=== PATIENT | male | born 1950 | race Caucasian/White ===

== ENCOUNTER 2024-02-21 13:37 | Inpatient (IN) ==
--- NOTE | 2024-02-21 13:43 | ED Triage Note ---
Date of Service February 21, 2024 Provider in Triage Author: Charanjit Riojas History of Present Illness This patient was briefly evaluated while in triage. An abbreviated physical exam was performed. This patient is a 73-year-old Male who presents to the ED for evaluation sent by Amy for left arm bursitis/cellulitis started Tuesday on Keflex and Bactrim saw Dr. Fam x 2 since Tuesday and symptoms got worse denies fever/chills Physical Exam GENERAL: NAD CARDIOVASCULAR: RRR RESPIRATORY: CTA EXT: left arm erythema, redness, warmth, decreased ROM Initial orders for labs and / or imaging were placed and patient was placed in the waiting area until a bed is available. Please see further documentation for the full ED course.
[2024-02-21 14:37] LABS: Basophils # (auto) 0.07 K/uL (0.00-0.20); Basophils % (auto) 0.5 %; Eosinophils # (auto) 0.08 K/uL (0.00-0.50); Eosinophils % (auto) 0.5 %; Hematocrit (blood only) 38.7 % (42.0-52.0); Hemoglobin 12.7 g/dl (14.0-18.0); Immature Granulocytes # (auto) 0.15 K/uL (0.01-0.20); Lymphocytes # (auto) 1.53 K/uL (1.20-3.40); Lymphocytes % (auto) 10.3 %; Mean Corpuscular Hemoglobin 30.5 pg (25.0-34.0); Mean Corpuscular Hgb Conc 32.8 g/dL (32.0-36.0); Mean Corpuscular Volume 92.8 fL (80.0-100.0); Mean Platelet Volume 11.2 fL (9.4-12.4); Monocytes # (auto) 1.27 K/uL (0.11-0.59); Monocytes % (auto) 8.5 %; Neutrophils # (auto) 11.82 K/uL (1.40-6.50); Neutrophils % (auto) 79.2 %; Platelet Count 238 K/uL (130-400); RDW Coefficient of Variation 13.9 % (11.5-14.5); RDW Standard Deviation 47.5 fL (36.4-46.3); Red Blood Count 4.17 M/uL (4.70-6.10); White Blood Count 14.92 K/ul (4.8-10.8)
[2024-02-21 14:46] LABS: Albumin Level 4.1 gm/dl (3.4-5.0); BUN Creatinine Ratio 17.2 (10-20); Bilirubin Direct 0.2 mg/dl (0-0.2); Bilirubin,Total 0.7 mg/dl (0.2-1.0); Creatinine Clr Calc Pharmacy 48.7 ml/min; Est GFR (African American) 67.7 ml/min; Est GFR (Non-African American) 58.5 ml/min; Magnesium 1.8 mg/dl (1.7-2.4); Potassium 3.9 mmol/L (3.5-5.1); Total Protein 7.2 gm/dl (6.0-8.3)
--- NOTE | 2024-02-21 14:57 | XRay Report ---
LEFT ELBOW 3 VIEWS CLINICAL HISTORY: Cellulitis/bursitis. FINDINGS: 3 views of the left elbow are obtained. No prior studies are available for comparison at th e time of dictation. The skeletal structures are osteopenic. No acute/displaced fracture is identifie d. There is no dislocation. An enthesophyte is seen at the triceps insertion, and there are enthesoph ytes along the humeral epicondyles. There is a small joint effusion. There is marked soft tissue fabien a surrounding the elbow, greatest dorsally. No soft tissue gas or radiodense foreign body is seen. IMPRESSION: 1. No acute bony abnormality is identified. 2. Marked soft tissue edema is seen around the elbow, greatest dorsally. This likely represents cellu litis/bursitis as clinically suspected. 3. There is a small nonspecific joint effusion. Correlate clinically. Electronically signed by: Harvinder Rocha M.D. 02/21/2024 2:56 PM
[2024-02-21] MEDS ORDERED: VANCOMYCIN CONSULT ACTIVE PRN (16:18)
[2024-02-21] MEDS: VANCOMYCIN HCL 1,500 MG in SODIUM CHLORIDE 0.9% 500 ML IV ONE (16:58)
[2024-02-21] MEDS ORDERED: ALUMINUM/MAGNESIUM SUSP 30 ML UDC PO PRN (17:02)
--- NOTE | 2024-02-21 17:04 | History & Physical Report ---
Date of Service February 21, 2024 Assessment & Plan (1) Bursitis of left elbow: Plan Left elbow cellulitis Left elbow bursitis Failure of outpatient antibiotic therapy with Keflex and Bactrim. No sepsis poa. lactate and procal nl. pt afebrile. left elbow xr reviewed. Patient started on vancomycin at ed, continue vancomycin. Follow-up admitting blood culture, send MRSA screen. Orthopedic consult. Other chronic medical conditions: HLD, HTNcontinue with/resume home meds as and when able. Heparin subcu for DVT prophylaxis Full code History of Present Illness Chief Complaint: expanding left elbow cellulitis Primary Care Provider: Antoni Fam MD 73-year-old male with PMH of HLD, HTN presented to the ED for evaluation of expanding left elbow cellulitis. Patient was evaluated by his PCP yesterday for left elbow cellulitis and was put on antibiotic Keflex and Bactrim. Patient took both antibiotics about 1 days worth before presentation to the ED. Patient was directed to go to the hospital if elevated temperature or expanding erythema. Patient came into the ED for evaluation of cellulitis as the erythema is expanding than yesterday. Patient denies fever/sore throat/nausea/vomiting/chest pain/cough/palpitations/abdominal pain/acute changes in bowel or bladder or appetite habits. Patient denies any smoking/alcohol/recreational drug use. Full code as per my discussion with the patient. [Ena and Juan Jose are his POA] Medications were reviewed with the patient in detail. Plan of care were discussed with the patient and his children Ena and Juan Jose at bedside in detail. They voiced understanding and were agreeable to plan of care. Allergies Allergy/AdvReac Type Severity Reaction Status Date / Time No Known Allergies Allergy Unknown Verified 02/21/24 16:25 Home Medications Medication Instructions Recorded Confirmed Type atorvastatin 10 mg tablet 10 mg PO QAM 09/21/19 02/21/24 History levothyroxine 75 mcg tablet 75 mcg PO QAM 09/21/19 02/21/24 History losartan 25 mg tablet 25 mg PO QPM 09/21/19 02/21/24 History omega-3 fatty acids-fish oil 360 1 cap PO QAM 09/21/19 02/21/24 History mg-1,200 mg capsule (Fish Oil) amlodipine 2.5 mg tablet 2.5 mg PO QAM 02/21/24 02/21/24 History aspirin 81 mg tablet,delayed 81 mg PO QAM 02/21/24 02/21/24 History release cephalexin 500 mg capsule 500 mg PO TID 02/21/24 02/21/24 History sulfamethoxazole 800 1 tab PO BID 02/21/24 02/21/24 History mg-trimethoprim 160 mg tablet Past Med/Surg History Problem List (Updated 02/21/24 @ 17:02 by Vishal Lincoln MD) Bursitis of left elbow Right knee DJD Left knee DJD Medical History Achilles tendon tear Surgical History No pertinent past surgical history Family History Other No pertinent family history Social History Smoking Status: Never smoker Preferred Language: Khmer Current Living Situation: Family Feels Safe at Home: Yes Review of Systems Review of Systems: Negative otherwise mentioned in HPI. Physical Exam Physical Exam: GENERAL: Alert and oriented x3. NAD, on RA. HEENT: No pallor, no icterus. Pupils equal, round and reactive to light. Oral mucosa moist. NECK: No JVD, no neck masses. HEART: S1 and S2 heard. Regular rate and rhythm. No murmur, no gallop. RESPIRATORY SYSTEM: Normal AP diameter. No accessory muscle use. No wheezing, no crackles. ABDOMEN: Soft, bowel sounds present, nontender, no distention. CENTRAL NERVOUS SYSTEM: No facial droop. Speech is clear. Obeys simple commands. Moves extremities. EXTREMITIES: No edema, no erythema seen. Left know bursitis/cellulitis noted, erythema/warmth extending from mid arm to about wrist. ROM ok, non painful. non tender on exam. Results & Data Results & Data Vital Signs (Past 12 Hours) Vital Signs Temp Pulse Resp BP Pulse Ox O2 Del Method 02/21/24 15:56 70 02/21/24 13:41 36.7 C 86 18 149/86 H 96 Room Air
--- NOTE | 2024-02-21 21:07 | Emergency Department Note ---
History of Present Illness General Chief complaint: Infection Stated complaint: ARM INFECTION, REF BY DOC Time Seen by Provider: 02/21/24 15:46 History of Present Illness Provider complaint: Left arm infection Maximum Pain Intensity: 7 73-year-old male presents emergency department for left arm infection. Patient's symptoms began 4 days ago. He reports there is increasing redness and swelling in his left elbow area. No fevers. Patient reports he went to see his primary care doctor at [facility] who started him on Keflex and Bactrim luis a line around it yesterday. The patient states that the redness and swelling spread past line and he was instructed to come to the emergency department. Home Medications Medication Instructions Recorded Confirmed Type atorvastatin 10 mg tablet 10 mg PO QAM 09/21/19 02/21/24 History levothyroxine 75 mcg tablet 75 mcg PO QAM 09/21/19 02/21/24 History losartan 25 mg tablet 25 mg PO QPM 09/21/19 02/21/24 History omega-3 fatty acids-fish oil 360 1 cap PO QAM 09/21/19 02/21/24 History mg-1,200 mg capsule (Fish Oil) amlodipine 2.5 mg tablet 2.5 mg PO QAM 02/21/24 02/21/24 History aspirin 81 mg tablet,delayed 81 mg PO QAM 02/21/24 02/21/24 History release cephalexin 500 mg capsule 500 mg PO TID 02/21/24 02/21/24 History sulfamethoxazole 800 1 tab PO BID 02/21/24 02/21/24 History mg-trimethoprim 160 mg tablet Allergies Allergy/AdvReac Type Severity Reaction Status Date / Time No Known Allergies Allergy Unknown Verified 02/21/24 16:25 Past Med/Surg History Problem List (Updated 02/21/24 @ 21:10 by Naeem Wheatley MD) Cellulitis (Acute) Bursitis of left elbow Right knee DJD Left knee DJD Medical History Achilles tendon tear Surgical History No pertinent past surgical history Family History Other No pertinent family history Social History Smoking Status: Never smoker Preferred Language: Chinese Current Living Situation: Family Feels Safe at Home: Yes Physical Exam Vital Signs Vital Signs - 24 hr 02/21/24 13:41 02/21/24 13:43 02/21/24 15:51 Temperature 36.7 C Temperature Source Temporal Artery Scan Pulse Rate 86 71 Pulse Rate from SpO2 Sensor 70 Respiratory Rate 18 16 Respiratory Effort / Characteristics Non-Labored Respiratory Depth Normal Blood Pressure 149/86 H Blood Pressure Mean 107 Pulse Oximetry 96 98 97 Oxygen Delivery Method Room Air Room Air Sepsis Recent Fever Within 48 Hours No Sepsis New/Unexplained Change in Mental Status No Sepsis Action Taken by Nursing No Action Required 02/21/24 15:56 02/21/24 16:15 Temperature Temperature Source Pulse Rate 70 80 Pulse Rate from SpO2 Sensor 74 Respiratory Rate 14 Respiratory Effort / Characteristics Respiratory Depth Blood Pressure Blood Pressure Mean Pulse Oximetry 93 Oxygen Delivery Method Sepsis Recent Fever Within 48 Hours Sepsis New/Unexplained Change in Mental Status Sepsis Action Taken by Nursing Physical Exam CV: Normal rate, regular rhythm, normal heart sounds and intact distal pulses. There is no peripheral edema. Palpable radial pulses bue. PULM/CHEST: Effort normal and breath sounds normal. No respiratory distress. No stridor. He has no wheezes. He has no rales. MUSC/SKEL: Left upper extremity: Palpable radial ulnar pulse. Motor and sensation intact in the median radial ulnar nerve distribution. Compartments of the upper extremity are soft. There is erythema and warmth as well as swelling in the right elbow and medial forearm extending up into his biceps area. Full range of motion of the left elbow. Consistent with appearance of cellulitis. Right upper extremity: Within normal limit Course Course 1546: The patient was evaluated in room C8. A complete history and physical exam was performed Administered Medications Discontinued Medications Vancomycin HCl 1,500 mg/ (Sodium Chloride) 530 mls @ 200 mls/hr IV NOW ONE Stop: 02/21/24 18:56 Last Infusion: 02/21/24 19:37 Dose: Infused Documented By: Admin: 02/21/24 16:58 Dose: 200 mls/hr Documented By: MAXIMILIANO Medical Decision Making Laboratory Data Attestation: I reviewed the patient's lab results. 02/21/24 11:05 02/21/24 11:05 Lab Results 02/21/24 02/21/2424 Range/Units 11:05 14:05 16:14 WBC 14.92 H (4.8-10.8) K/ul RBC 4.17 L (4.70-6.10) M/uL Hgb 12.7 L (14.0-18.0) g/dl Hct 38.7 L (42.0-52.0) % MCV 92.8 (80.0-100.0) fL MCH 30.5 (25.0-34.0) pg MCHC 32.8 (32.0-36.0) g/dL RDW Std Deviation 47.5 H (36.4-46.3) fL RDW Coeff of Ez 13.9 (11.5-14.5) % Plt Count 238 (130-400) K/uL MPV 11.2 (9.4-12.4) fL Immature Gran % (Auto) 1.0 % Neut % (Auto) 79.2 % Lymph % (Auto) 10.3 % Wharton % (Auto) 8.5 % Eos % (Auto) 0.5 % Baso % (Auto) 0.5 % Neut # (Auto) 11.82 H (1.40-6.50) K/uL Lymph # (Auto) 1.53 (1.20-3.40) K/uL Wharton # (Auto) 1.27 H (0.11-0.59) K/uL Eos # (Auto) 0.08 (0.00-0.50) K/uL Baso # (Auto) 0.07 (0.00-0.20) K/uL Immature Gran # (Auto) 0.15 (0.01-0.20) K/uL Sodium 136 (136-145) mmol/L Potassium 3.9 (3.5-5.1) mmol/L Chloride 103 (98-107) mmol/L Carbon Dioxide 27 (21-32) mmol/L Anion Gap 6 (3-11) BUN 21 (6-23) mg/dl Creatinine 1.22 (0.6-1.4) mg/dl Est Cr Clr Drug Dosing 48.7 ml/min Est GFR ( Amer) 67.7 ml/min Est GFR (Non-Af Amer) 58.5 ml/min BUN/Creatinine Ratio 17.2 (10-20) Glucose 114 H (70-99(Fasting)) mg/dl Lactate 1.1 1.3 (0.4-2.0) mmol/L Calcium 9.0 (8.6-10.3) mg/dl Magnesium 1.8 (1.7-2.4) mg/dl Total Bilirubin 0.7 (0.2-1.0) mg/dl Direct Bilirubin 0.2 (0-0.2) mg/dl AST 27 (13-39) U/L ALT 40 (7-52) U/L Alkaline Phosphatase 99 (34-104) U/L Total Protein 7.2 (6.0-8.3) gm/dl Albumin 4.1 (3.4-5.0) gm/dl Procalcitonin 0.03 (0-0.5) ng/ml Imaging Data Radiologist's Impression: Elbow X-Ray 02/21/24 13:43 LEFT ELBOW 3 VIEWS CLINICAL HISTORY: Cellulitis/bursitis. FINDINGS: 3 views of the left elbow are obtained. No prior studies are available for comparison at the time of dictation. The skeletal structures are osteopenic. No acute/displaced fracture is identified. There is no dislocation. An enthesophyte is seen at the triceps insertion, and there are enthesophytes along the humeral epicondyles. There is a small joint effusion. There is marked soft tissue edema surrounding the elbow, greatest dorsally. No soft tissue gas or radiodense foreign body is seen. IMPRESSION: 1. No acute bony abnormality is identified. 2. Marked soft tissue edema is seen around the elbow, greatest dorsally. This likely represents cellulitis/bursitis as clinically suspected. 3. There is a small nonspecific joint effusion. Correlate clinically. Electronically signed by: Harvinder Rocha M.D. 02/21/2024 2:56 PM MDM Narrative Cardiac monitoring: An order was placed for continuous cardiac monitoring. The monitor shows a rate of 80 with sinus rhythm interpreted by me Patient was seen during a time of extreme volume and extreme acuity. Nursing triage protocols were initiated labs and imaging was conducted by protocol in the triage area. Labs show leukocytosis of 14. Patient will be admitted for cellulitis failed outpatient treatment. IV vancomycin started for the patient. Impression & Plan Cellulitis Discharge Plan Visit Data Chief Complaint: Infection Stated Complaint: ARM INFECTION, REF BY DOC ED Provider: Naeem Wheatley Discharge Problem: Cellulitis Patient Disposition: Admitted As Inpatient Discharge Instructions Interventions: ED Discharge Assessment Last Done: 02/21/24 19:33 Discharge Problem: Cellulitis Qualifiers: Site of cellulitis of extremity: upper extremity Laterality: left
[2024-02-21] MEDS: ACETAMINOPHEN 325 MG TAB PO PRN (21:16)
[2024-02-21] MEDS: LOSARTAN POTASSIUM 25 MG TAB PO SCH (21:16)
[2024-02-21] MEDS: HEPARIN SOD 5,000 UNIT/0.5 ML VIAL SQ SCH (21:17)
--- OUTSIDE RECORDS SUMMARY | 2024-02-21 23:31 | External Medical Summary | Summary of Care ---
Author Name Unknown Organization [facility] Address [address] [facility] [place] [address] Phone [phone] Care Team Providers Care Shirt Sorter Name Role Phone Bebo Fam MD Primary Care Provider [phone] Reason for Visit * Reason Comments Acute Patient is here toda y for an acute visit Patient states his light arm and elbow is swelled up started Tuesday Patient states it is not painful just pressure Patient states before he noticed the swelling he was lifting hay bails Encounter Details Date Type Department Care Team (Late st Contact Info) Description 02/20/2024 12:00 PM EDT Office Visit [facility] [address] [place] [address] Bebo Fam MD [address] [place] [address] Olecranon bursitis of left elbow* Allergies No known active allergiesdocumented as of this encounter (statuses as of 02/20/2024) Medications Medication Sig Dispensed Refills Start Date End Date Status TYLENOL PM EXTRA STRENGTH 500-25 MG PO TABS as needed Active OMEGA-3 1000 MG PO CAPSIndications:Rout ine medical exam,Dyslipidemia, goal LDL below 100 Take 1 Capsule by mouth daily. 02/05/2014 Active ASPIRIN 81 MG PO TABSIndications:Rout ine medical exam Take 1 Tablet by mouth in the morning. 02/05/2014 Active Acyclovir 5 % External Ointment (Zovirax)Indications :Recurrent oral herpes simplex infection APPLY TO AFFECTED AREA(S) EVERY 3 HOURS 15 g 11 03/15/2023 4 Active Additional Information Patient not taking.Reported on 10/20/2023 amLODIPine Besylate 2.5 MG Oral Tablet (Norvasc)Indications :Hypertension goal BP (blood pressure) < 130/80 TAKE ONE TABLET BY MOUTH EVERY MORNING 90 Tablet 3 10/13/2023 5 Active Additional Information Patient not taking.Reported on 10/20/2023 Atorvastatin Calcium 10 MG Oral Tablet (Lipitor) TAKE ONE TABLET BY MOUTH AT BEDTIME 100 Tablet 1 10/31/2023 Active Sildenafil Citrate 100 MG Oral TabletIndications:Ot her male erectile dysfunction Take 1 Tablet by mouth daily as needed for Erectile Dysfunction. 6 Tablet 5 11/23/2023 Active valACYclovir HCl 1 GM Oral Tablet (Valtrex)Indications :Oral herpes simplex infection Take 2 Tablets by mouth in the morning and 2 Tablets before bedtime. for cold sores. 12 Tablet 3 11/23/2023 Active Losartan Potassium 50 MG Oral Tablet (Cozaar)Indications: Decreased GFR TAKE ONE TABLET BY MOUTH EVERY DAY 90 Tablet 3 12/19/2023 5 Active Levothyroxine Sodium 75 MCG Oral Tablet (Levoxyl)Indications :Acquired hypothyroidism TAKE 1 TABLET BY MOUTH DAILY AT LEAST 30 MINUTES PRIOR TO FIRST MEAL OF THE DAY OR OTHER MEDICATIONS 100 Tablet 1 02/06/2024 Active Sulfamethoxazole-Tri methoprim 800-160 MG Oral Tablet (Bactrim DS)Indications:Olecr anon bursitis of left elbow Take 1 Tablet by mouth in the morning and 1 Tablet before bedtime. Do all this for 10 days. Until gone. 20 Tablet 02/20/2024 4 Active Cephalexin 500 MG Oral CapsuleIndications:O lecranon bursitis of left elbow Take 1 Capsule by mouth in the morning and 1 Capsule at noon and 1 Capsule before bedtime. Do all this for 10 days. 30 Capsule 02/20/2024 4 Active documented as of this encounter (statuses as of 02/20/2024) Active Problems Problem Noted Date Diagnosed Date Diverticulosis of large intestine without hemorr tahira 04/05/2023 Atelectasis 04/05/2023 Mitral valve insufficiency 04/05/2023 Mild tricuspid regurgitation 04/05/2023 Grade I diastolic dysfunction 04/05/2023 Renal cyst 04/05/2023 Cyst of spleen 04/05/2023 Asymptomatic bilateral carotid artery stenosis 0 04/05/2023 PAC (premature atrial contraction) 05/24/2022 Hypertension goal BP (blood pressure) < 130/80 0 04/17/2021 Aortic root dilatation 05/19/2020 H/O actinic keratosis 03/17/2020 Overview: Bowenoid actinic keratosis (R restorationist), Efudex (face 10/29) Hx of nonmelanoma skin cancer 03/17/2020 Overview: Atypical sebaceous neoplasm (L inferior restorationist 03/2020) Sun-damaged skin 05/11/2017 S/P aortic valve replacement using Ross procedur e 08/19/2011 Acquired hypothyroidism 03/26/2010 Dyslipidemia, goal LDL below 100 08/14/2009 ERECTILE DYSFUNCTION 06/18/2002 documented as of this encounter (statuses as of 02/20/2024) Resolved Problems Problem Noted Date Diagnosed Date Resolved Date White coat syndrome with carmen gnosis of hypertension 05/24/2022 11/10/2022 Overview: duplicate Lumbar spinal cord injury wi thout evidence of spinal bone injury 10/04/2017 05/19/2020 Neoplasm of scalp 05/11/2017 05/23/2018 Screening for prostate cancer 12/25/2015 05/11/2017 Routine medical exam 12/25/2015 017 Other eye problems influencing health status 6 05/11/2017 Need for shingles vaccine 02/07/2015 Special screening for malign ant neoplasm of prostate 01/31/2013 05/11/2017 Tick bite of upper arm 01/31/201305/11 Toxic effect of venom 01/31/20132016 Overview: ICD-10 update of inactive term Senile keratosis 03/28/2012 05/11/2017 Overview: right cheek Other seborrheic keratosis 03/28/2012 0 05/11/2017 Diverticulosis of colon 08/19/201105/06 Examination following surgery 04/30/2010 08/19/2011 Hypophosphatemia 03/29/2010 05/24/2022 Closed fracture of lumbar sp ine without lesion of spinal cord 03/26/2010 04/25/2023 Dyslipidemia, goal to be determined 08/14/2009 01/31/2013 Overview: Per Lipid Taxonomy. Hypothyroidism 11/21/2007 01/31/2013 Dyslipidemia, goal LDL below 160 07/21/2007 08/14/2009 Overview: Per Lipid Taxonomy. Benign neoplasm of colon 12/19/2006 Overview: hyperplastic polyp--repeat 3-5 years ADVANCE DIRECTIVE INFORMATION 03/01/2006 05/11/2017 Overview: No, Advance Directive brochure given to patient at prior appointment. FATIGUE NOS 06/18/2002 11/21/2007 ROUTINE MEDICAL EXAM 06/18/2002 008 Sebaceous cyst 04/18/2002 11/21/2007 Aortic valve disorder 2010 Overview: Ross Procedure Aortic valve replacement with pulmonary auto documented as of this encounter (statuses as of 02/20/2024) Immunizations Name Administration Dates Next Due COVID-19 mRNA, LNP-s, No Pre serve, 2-Dose Series (Moderna) 11/17/2020,10/20/2020 COVID-19, mRNA, LNP-s, PF, B ooster, 100mcg/0.5mg (Moderna) 07/20/2021 Covid-19, Mrna, Lnp-s, Pf, B ivalent, 30 Mcg, IM, 12 yrs and above (Pfizer) 08/03/2022 Pneumococcal Conjugate Vacc, 13 Valent (Prevnar) 05/05/2016 Pneumococcal Polysaccharide PPV23 (Pneumovax) 05/11/2017,05/22/2008 Season Influenza, Quad, PF, Adjuvanted, 65+ Yrs, IM (FLUAD) 05/19/2020 Seasonal Influenza, PF, 6 M & above, IM , (FluLaval or Fluzone) 05/18/2019,05/23/2018,07/04/2017 05/23/2019 Seasonal Influenza, Quadriva lent Hd (Fluzone Hd) 05/10/2023,05/24/2022,05/22/2021 Seasonal Influenza, Quadriva lent, No Preserve, IM 08/05/2015 Seasonal Influenza, Split, I IV3, With Preserve, Inj 05/21/2014,07/16/2011 Seasonal Influenza, Trivalen t, High Dose, No Preserve, IM 08/05/2015 TD, Preservative Free 05/19/2020 TDAP, Age 7 and older, IM (Adacel) 07/21/2007 Varicella Zoster Vaccine (Adult) 10/24/2015 Zoster Vaccine Recombinant (Shingrix) 05/18/2019 ,05/23/2018 09/22/2018 documented as of this encounter Social History Tobacco Use Types Packs/Day Years Used Date Smoking Tobacco: Never Smokeless Tobacco: Never Alcohol Use Standard Drinks/Week Comments Not Currently 0 (1 standard drink = 0.6 oz pur e alcohol) very rare PHQ-2 Answer Date Recorded PHQ Adult Total Score 0 11/23/2023 Sex and Gender Information Value Date Recorded Sex Assigned at Not on file Gender Identity Not on file Sexual Orientation Straight 05/18/2019 7: 46 AM EDT Job Start Date Occupation Industry Not on file Not on file Not on file documented as of this encounter Last Filed Vital Signs Vital Sign Reading Time Taken Comments Blood Pressure 122/72 02/20/2024 12:16 PM EDT Pulse 70 02/20/2024 12:16 PM EDT Temperature 36.3 C (97.3 F) 02/20/2024 12:16 PM E DT Respiratory Rate 16 02/20/2024 12:16 PM EDT Oxygen Saturation 98% 02/20/2024 12:16 PM EDT Inhaled Oxygen Concentration - - Weight 77.3 kg (170 lb 6.4 oz) 02/20/2024 12:16 PM EDT Height 170.2 cm (5' 7") 02/20/2024 12:16 PM EDT Body Mass Index 26.69 02/20/2024 12:16 PM EDT documented in this encounter Progress Notes * Bebo Fam MD - 02/20/2024 12:52 PM EDT Subjective: Ray Clarke is a 73 year old male. Chief Complaint Patient presents with Acute Patient is here today for an acute visit Patient states his light arm and elbow is swelled up started Tuesday Patient states it is not painful just pressure Patient states before he noticed the swelling he was lifting hay bails HPI: 73-year-old seen today because of developing swelling a primarily with the posterior aspect ofthe left elbow but into the left forearm. This was 1st noted 2 days ago. He questions whether the maybe some relationship to throwing hay cuco which he did for several days up until the day before onset. He has not aware of any fever but notes that the area is hot to touch. He does not have a history diabetes nor aware of any immuno compromising illness. Patient Active Problem List Diagnosis ERECTILE DYSFUNCTION Acquired hypothyroidism S/P aortic valve replacement using Ross procedure Dyslipidemia, goal LDL below 100 Sun-damaged skin H/O actinic keratosis Hx of nonmelanoma skin cancer Aortic root dilatation (HCC) Hypertension goal BP (blood pressure) < 130/80 PAC (premature atrial contraction) Diverticulosis of large intestine without hemorrhage Atelectasis Mitral valve insufficiency Mild tricuspid regurgitation Grade I diastolic dysfunction Renal cyst Cyst of spleen Asymptomatic bilateral carotid artery stenosis Current Outpatient Medications Medication Sig Dispense Refill TYLENOL PM EXTRA STRENGTH 500-25 MG PO TABS as needed OMEGA-3 1000 MG PO CAPS Take 1 Capsule by mouth daily. ASPIRIN 81 MG PO TABS Take 1 Tablet by mouth in the morning. Atorvastatin Calcium 10 MG Oral Tablet (Lipitor) TAKE ONE TABLET BY MOUTH AT BEDTIME 100 Tablet 1 Sildenafil Citrate 100 MG Oral Tablet Take 1 Tablet by mouth daily as needed for Erectile Dysfunction. 6 Tablet 5 valACYclovir HCl 1 GM Oral Tablet (Valtrex) Take 2 Tablets by mouth in the morning and 2 Tablets before bedtime. for cold sores. 12 Tablet 3 Losartan Potassium 50 MG Oral Tablet (Cozaar) TAKE ONE TABLET BY MOUTH EVERY DAY 90 Tablet 3 Levothyroxine Sodium 75 MCG Oral Tablet (Levoxyl) TAKE 1 TABLET BY MOUTH DAILY AT LEAST 30 MINUTES PRIOR TO FIRST MEAL OF THE DAY OR OTHER MEDICATIONS 100 Tablet 1 Acyclovir 5 % External Ointment (Zovirax) APPLY TO AFFECTED AREA(S) EVERY 3 HOURS (Patient not taking: Reported on 10/20/2023) 15 g 11 amLODIPine Besylate 2.5 MG Oral Tablet (Norvasc) TAKE ONE TABLET BY MOUTH EVERY MORNING (Patient not taking: Reported on 10/20/2023) 90 Tablet 3 No current facility-administered medications for this visit. Review of patient's allergies indicates: No Known Allergies Objective: BP 122/72 | Pulse 70 | Temp 36.3 C (97.3 F) (Temporal Artery) | Resp 16 | Ht 1.702 m (5' 7") | Wt 77.3 kg (170 lb 6.4 oz) | SpO2 98% | BMI 26.69 kg/m | BSA 1.91 m Physical Exam: CONST: alert, pleasant, no acute distress EXT: He has swelling of the posterior aspect of the elbow at the olecranon bursa with mild tenderness. Has evidence of erythema that extends down about a 3rd of the left lower arm. There is no open wound. There is no area ASSESSMENT/PLAN: Olecranon bursitis of left elbow (Primary) with associated cellulitis. Will initiate Keflex 500 mg 3 times a day Bactrim DS 1 twice a day for 10 days. Also recommend heat to the area a couple times aday. If he develops fever in particular 101.5 or higher, he needs to go to the emergency room as hewill need to be admitted for IV antibiotics. I will see him again tomorrow. If there has been progression of cellulitis, we may need have him seen in the ER. I did bebo the edge of the cellulitis that involves the left forearm. Check-out note: I need to see Pt tomorrow . OK to double book. Maybe after last apt of morning Bebo Fam MD documented in this encounter Nursing Notes * Riky Johnson MED ASSIST - 02/20/2024 12:19 PM EDT The patient has been properly identified by confirmation of name and date of . Chief Complaint Patient presents with Acute Patient is here today for an acute visit Patient states his light arm and elbow is swelled up started Tuesday Patient states it is not painful just pressure Patient states before he noticed the swelling he was lifting hay bails documented in this encounter Plan of Treatment Upcoming Encounters Date Type Department Care Team (Late st Contact Info) Description 02/21/2024 12:00 PM EDT Office Visit [place] [address] [facility] [place] [id number] Bebo Fam MD [address] [place] [address] 03/09/2024 8:30 AM EDT Cardiac Studies Cardiac Studies, [facility] [address] [place] [address] 04/10/2024 9:00 AM EDT Home Visit Care at Home [address] [place] [address] Kelsea Lopez PA-C [address] [place] [address] 08/13/2024 10:30 AM EST Office Visit Cardiology, [facility] [address] [facility] [place] [address] Iván Vance MD [address] [place] [address] 09/13/2024 9:20 AM EST [facility] [facility] [address] [place] [address] Lorri Chatman, PA-C [address] [place] [address] [place] [address] 11/23/2024 12:00 PM EDT Office Visit [place] [address] [facility] [place] [id number] Bebo Fam MD [address] [place] [facility] [place] [address] Scheduled Procedures Name Priority Associated Diagnoses Date/Ti me COLONOSCOPY FLEXIBLE PROXIMA L DIAGNOSTIC Recall History of colonic polyps Health Maintenance Due Date Last Done Comments Cologuard 1995 Sigmoidoscopy 1995 COVID-19 Vaccine ( season) 2023 08/03/2022, 07/20/2021, 11/17/2020, Additional history exists Fecal Occult Blood Test 06/07/2023 06/07/2022 GFR 05/10/2024 05/10/2023, 05/06, 03/25/2022, Additional history exists TSH 05/10/2024 05/10/2023, 03/05, 05/22/2021, Additional history exists Depression Screening 11/22/2024 11/23/2023, 05/05/2016, 02/07/2015 Albumin/Creatinine Ratio 05/10/2026 05/10/2023, 05/06 Colonoscopy 05/12/2028 05/12/2023, 03/2023, 08/12/2021, Additional history exists Colorectal Cancer Screening 05/12/2028 DTaP,Tdap,and Td Vaccines (3 - Td or Tdap) 05/19/2030 05/19/2020, 07/21/2007, 07/12/1996 Pneumococcal Vaccine: 65+ Years Completed 05/11/2017, 05/05/2016, 05/22/2008 Zoster Vaccines Completed 05/18/2019, 05/06, 10/24/2015 Influenza Vaccine (FLU shot) Completed 01/2023, 05/24/2022, 05/22/2021, Additional history exists GARDASIL-HPV IMMUNIZATION SERIES Aged Out No longer eligible based on patient's age to complete this topic Hepatitis B Aged Out No longer eligi ble based on patient's age to complete this topic MENINGOCOCCAL (MENACTRA/MENVEO) Aged Out No longer eligible based on patient's age to complete this topic documented as of this encounter Medical Devices Implanted Type Area Mica Laminating Machine Feeder Device Identifier Shelf Expiration Date Model / Serial / Lot Screw 7x50 Poly Si [id number] - [id number] Implanted:Qty : 2 on 04/27/2010 at [facility] N/A: Spine Lumbar JNJ : [employer] [id number] / / Screw Set Sng Inner [id number] - [id number] Implanted:Qty : 4 on 04/27/2010 at [facility] N/A: Spine Lumbar JNJ : [employer] [id number] / / Screw 7x45 Poly Si [id number] - [id number] Implanted:Qty : 2 on 04/27/2010 at [facility] N/A: Spine Lumbar JNJ : [employer] [id number] / / Pepe 5.5x55 Ti Prbnt [id number] - [id number] Implanted:Qty : 2 on 04/27/2010 at [facility] N/A: Spine Lumbar JNJ : [employer] [id number] / / Duragen Plus 1x3 Dp 1013 Min5 - [id number] Implanted:Qty : 1 on 04/27/2010 at OR [facility] N/A: Spine Lumbar [employer] 10/06/2012 [id number] / / [id number] documented as of this encounter Visit Diagnoses Diagnosis Olecranon bursitis of left elbow- Primary Olecranon bursitis documented in this encounter Advance Directives * Full Code (Latest Code Status on File) Date Activated Date Inactivated Comments 04/27/2010 4:20 PM 04/30/2010 5:41 PM This order r eflects the patients wishes and were consensually agreed upon. Question Answer Comments Discussion of Advance Directives occurred with: Not Discussed * Full Code Date Activated Date Inactivated Comments 04/27/2010 7:39 AM 04/27/2010 4:20 PM This order r eflects the patients wishes and were consensually agreed upon. Question Answer Comments Discussion of Advance Directives occurred with: Patient * Full Code Date Activated Date Inactivated Comments 03/26/2010 9:36 PM 03/30/2010 7:26 PM This order r eflects the patients wishes and were consensually agreed upon. Care Teams Shirt Sorter Relationship Specialty Start Date End Date Bebo Fam MD [address] [place] [address] PCP - General Family Medicine 03/29/22 documented as of this encounter
--- OUTSIDE RECORDS SUMMARY | 2024-02-21 23:31 | External Medical Summary | Summary of Care ---
Author Name Unknown Organization [facility] Address [address] [facility] [place] [address] Phone [phone] Care Team Providers Care Mri Supervisor Name Role Phone Antoni Fam MD Primary Care Provider [phone] Reason for Visit * Reason Comments Acute Pt here today to fol low up on left arm swelling Encounter Details Date Type Department Care Team (Late st Contact Info) Description 02/21/2024 12:00 PM EDT Office Visit [facility] [address] [place] [address] Antoni Fam MD [address] [place] [address] Olecranon bursitis of left elbow* Allergies No known active allergiesdocumented as of this encounter (statuses as of 02/21/2024) Medications Medication Sig Dispensed Refills Start Date [...] EVERY 3 HOURS 15 g 11 03/15/2023 07/10/202 4 Active Additional Information Patient not taking.Reported on 10/20/2023 amLODIPine Besylate 2.5 MG Oral Tablet (Norvasc)Indications :Hypertension goal BP (blood pressure) < 130/80 TAKE ONE TABLET BY MOUTH EVERY MORNING 90 Tablet 3 10/13/2023 5 Active Atorvastatin Calcium 10 MG Oral Tablet (Lipitor) [...] as of this encounter (statuses as of 02/21/2024) Active Problems Problem Noted Date Diagnosed Date Hypertensive heart disease without congestive he art failure 02/21/2024 Diverticulosis of large intestine without hemorr tahira [...] keratosis 03/17/2020 Overview: Bowenoid actinic keratosis (R judaism), Efudex (face 10/29) Hx of nonmelanoma skin cancer 03/17/2020 Overview: Atypical sebaceous neoplasm (L inferior judaism 03/2020) Sun-damaged skin 05/11/2017 S/P aortic valve replacement using Ross procedur e 08/19/2011 Acquired hypothyroidism 03/26/2010 Dyslipidemia, goal LDL below 100 08/14/2009 ERECTILE DYSFUNCTION 06/18/2002 documented as of this encounter (statuses as of 02/21/2024) Resolved Problems Problem Noted Date Diagnosed Date [...] as of this encounter (statuses as of 02/21/2024) Immunizations Name Administration Dates Next Due COVID-19 [...] Packs/Day Years Used Date Smoking Tobacco: Never Passive Smoke Exposure: Past Smokeless Tobacco: Never Tobacco Cessation:Counseling Given: Not Answered Alcohol Use Standard Drinks/Week Comments Not Currently 0 (1 standard drink = 0.6 oz pur e alcohol) very rare PHQ-2 Answer Date Recorded PHQ Adult Total Score 0 11/23/2023 Hunger Vital Sign Answer Date Recorded Within the past 12 months, y ou worried that your food would run out before you got the money to buy more. Patient declined Within the past 12 months, t he food you bought just didn't last and you didn't have money to get more. Patient declined Childcare Answer Date Recorded Do you feel overwhelmed with taking care of a child, family member or friend? No 02/21/2024 Does your family need help f inding childcare? (Household - for ages 0-17 years) Not on file 02/21/2024 Clothing Answer Date Recorded Have you been unable to get clothing when it was really needed? No 02/21/2024 Is your family able to get c lothes or diapers when needed? (Household - for ages 0-17 years) Not on file 02/21/2024 Personal Safety Answer Date Recorded Do you feel unsafe or have concerns for your saf ety? No 02/21/2024 Do you have concerns for you r family's safety? (Household - for ages 0-17 years) Not on file 02/21/2024 Utilities Answer Date Recorded Do you have trouble paying y our heating, water, or electric bill? No 02/21/2024 Is your family able to pay t he heat, water, or electric bill? (Household - for ages 0-17 years) Not on file 02/21/2024 Does your family have access to good internet? (Household - for ages 0-17 years) Not on file 02/21/2024 Employment Status Answer Date Recorded Are you unemployed or without regular income? No 02/21/2024 Does the household have a re gular source of income? (Household - for ages 0-17 years) Not on file 02/21/2024 Social Connections Answer Date Recorded How often do you feel lonely or isolated from th ose around you? Never 02/21/2024 Financial Resource Strain Answer Date R ecorded Do you have any trouble payi ng for your medications, or do you think you might in the future? No 02/21/2024 Does your family have troubl e paying for medicine? (Household - for ages 0-17 years) Not on file 02/21/2024 Transportation Needs Answer Date Record ed Do you have trouble getting a ride to medical visits or work? (Adult - for ages 18 years and over) Not on file 02/21/2024 Does your family have a hard time getting a ride to doctors visits? (Household - for ages 0-17 years) Not on file 02/21/2024 Has lack of transportation k ept you from medical appointments, meetings, work, or from getting things needed for daily living? Check all that apply. No 02/21/2024 Do you (or your family) have trouble finding or paying for a ride (transportation)? (Household - for ages 0-17 years) Not on file 02/21/2024 Housing Stability Answer Date Recorded Do you currently live in a s helter or have no steady place to sleep at night? No 02/21/2024 Do you think you are at risk of becoming homeless? (Adult - for ages 18 years and over) Not on file 02/21/2024 Does your family worry about paying for your home or becoming homeless? (Household - for ages 0-17 years) Not on file 0 02/21/2024 Are you homeless or worried that you might be in the future? No 02/21/2024 Are you (or your family) ashlie eless or worried that you might be in the future? (Household - for ages 0-17 years) Not on file Food Insecurity Answer Date Recorded Do you need food for this week? No 02/21/2024 Are you able to get enough f ood for your family? (Household - for ages 0-17 years) Not on file 02/21/2024 Does your family need food t his week? (Household - for ages 0-17 years) Not on file 02/21/2024 Do you always have enough fo od for your family? (Household - for ages 0-17 years) Not on file 02/21/2024 Sex and Gender Information Value Date Recorded Sex Assigned at Male 02/21/2024 12:21 PM EDT Gender Identity Male 02/21/2024 12:21 PM EDT Sexual Orientation Straight 05/18/2019 7: 46 AM EDT Job Start Date Occupation Industry Not on file Not on file Not on file documented as of this encounter Last Filed Vital Signs Vital Sign Reading Time Taken Comments Blood Pressure 122/62 02/21/2024 12:17 PM EDT Pulse 73 02/21/2024 12:17 PM EDT Temperature 36.4 C (97.5 F) 02/21/2024 12:17 PM E DT Respiratory Rate 16 02/21/2024 12:17 PM EDT Oxygen Saturation 96% 02/21/2024 12:17 PM EDT Inhaled Oxygen Concentration - - Weight 76.8 kg (169 lb 6.4 oz) 02/21/2024 12:17 PM EDT Height - - Body Mass Index 26.53 02/20/2024 12:16 PM EDT documented in this encounter Progress Notes * Antoni Fam MD - 02/21/2024 1:08 PM EDT Subjective: Ray Clarke is a 73 year old male. Chief Complaint Patient presents with Acute Pt here today to follow up on left arm swelling HPI: 73-year-old seen as a 24 hour recheck of a left olecranon bursitis/cellulitis. He did start the Keflex and Bactrim and got 2 doses in yesterday and 1 dose in the morning. Unfortunately, he notesincrease swelling of the forearm. He has not aware of systemic fever. Patient Active Problem List Diagnosis ERECTILE DYSFUNCTION [...] of spleen Asymptomatic bilateral carotid artery stenosis Hypertensive heart disease without congestive heart failure Current Outpatient Medications Medication Sig Dispense Refill TYLENOL PM EXTRA STRENGTH 500-25 MG PO TABS as needed OMEGA-3 1000 MG PO CAPS Take 1 Capsule by mouth daily. ASPIRIN 81 MG PO TABS Take 1 Tablet by mouth in the morning. amLODIPine Besylate 2.5 MG Oral Tablet (Norvasc) TAKE ONE TABLET BY MOUTH EVERY MORNING 90 Tablet 3 Atorvastatin Calcium 10 MG Oral Tablet (Lipitor) [...] DAY OR OTHER MEDICATIONS 100 Tablet 1 Sulfamethoxazole-Trimethoprim 800-160 MG Oral Tablet (Bactrim DS) Take 1 Tablet by mouth in the morning and 1 Tablet before bedtime. Do all this for 10 days. Until gone. 20 Tablet 0 Cephalexin 500 MG Oral Capsule Take 1 Capsule by mouth in the morning and 1 Capsule at noon and 1 Capsule before bedtime. Do all this for 10 days. 30 Capsule 0 Acyclovir 5 % External Ointment (Zovirax) APPLY TO AFFECTED AREA(S) EVERY 3 HOURS (Patient not taking: Reported on 10/20/2023) 15 g 11 No current facility-administered medications for this visit. Review of patient's allergies indicates: No Known Allergies Objective: BP 122/62 | Pulse 73 | Temp 36.4 C (97.5 F) (Infrared ) | Resp 16 | Wt 76.8 kg (169 lb 6.4 oz) | SpO2 96% | BMI 26.53 kg/m | BSA 1.91 m Physical Exam: CONST: alert, pleasant, no acute distress HEAD: normocephalic, atraumatic EXT left arm-there has been some extension of erythema beyond the pen markings I placed at the border of erythema yesterday. There also is increase Um swelling directly at the olecranon bursa. NEURO:AAOx3, no gross focal deficits, cerebellar signs normal, affect appropriate ASSESSMENT/PLAN: Left-sided olecranon bursitis/cellulitis. Worsening in the last 24 hours despite antibiotics (Keflex and Bactrim). The patient is refer to [facility] emergency room. He will go by private vehicle. I did speak with charge nurse in the emergency room with patient's history. Antoni Fam MD documented in this encounter Nursing Notes * Aspen Serna LPN - 02/21/2024 12:15 PM EDT Chief Complaint Patient presents with Acute Pt here today to follow up on left arm swelling documented in this encounter Plan of Treatment Upcoming Encounters Date Type Department Care Team (Late st Contact Info) Description 03/09/2024 8:30 AM EDT Cardiac Studies Cardiac Studies, [facility] [address] [place] [address] 04/10/2024 9:00 AM EDT Home Visit Care at Home [address] [place] [address] Kelsea Lopez PA-C [address] [place] [address] 08/13/2024 10:30 AM EST Office Visit Cardiology, [facility] [address] [facility] [place] [address] Iván Vance MD [address] [facility] [address] 09/13/2024 9:20 AM EST Office [facility], [place] [address] [facility] [address] Lorri Chatman PA-C [address] [place] [address] [place] [address] 11/23/2024 12:00 PM EDT Office Visit Family [facility], [place] [address] [facility] [id number] Antoni Fam MD [address] [facility] [address] Scheduled Procedures Name Priority Associated Diagnoses Date/Ti [...] this encounter Medical Devices Implanted Type Area Solderer Torch Device Identifier Shelf Expiration Date Model / Serial / Lot Screw 7x50 Poly Si [id number] - [id number] Implanted:Qty : 2 on 04/27/2010 at [place] [facility] [place] N/A: Spine Lumbar JNJ : [employer] [id number] / / Screw Set Sng Inner [id number] - [id number] Implanted:Qty : 4 on 04/27/2010 at [place] [facility] [place] N/A: Spine Lumbar JNJ : [employer] [id number] / / Screw 7x45 Poly Si [id number] - [id number] Implanted:Qty : 2 on 04/27/2010 at [place] [facility] [place] N/A: Spine Lumbar JNJ : [employer] [id number] / / Pepe 5.5x55 Ti Prbnt [id number] - [id number] Implanted:Qty : 2 on 04/27/2010 at [place] [facility] [place] N/A: Spine Lumbar JNJ : [employer] [id number] / / Duragen Plus 1x3 Dp 1013 Min5 - [id number] Implanted:Qty : 1 on 04/27/2010 at [place] [facility] [place] N/A: Spine Lumbar [employer] 10/06/2012 [id number]-[id number] / / [id number] documented as of this encounter Visit Diagnoses [...] and were consensually agreed upon. Care Teams Mri Supervisor Relationship Specialty Start Date End Date Antoni Fam MD [address] [place] [facility] [place] [address] PCP - General Family Medicine 03/29/22 documented as of this encounter"
[2024-02-22] MEDS: LEVOTHYROXINE SODIUM 75 MCG TABLET PO SCH (05:49)
--- OUTSIDE RECORDS SUMMARY | 2024-02-22 07:14 | External Medical Summary | Summary of Care ---
Author Name Unknown Organization [facility] Address [address] [place] [address] Phone [phone] Care Team Providers Care Lean Specialist Name Role Phone Antoni Fam MD Primary Care Provider [phone] Reason for Visit * Reason Onset Date Comments MyCode Nonconsent - Not interested at this time 02/21/2024 Encounter Details Date Type Department Care Team (Late st Contact Info) Description 02/21/2024 Orders Only Outcomes Research Department [address] [place] [address] Roxane Vasques CHRA MyCode Nonconsent Documentation Allergies No known active allergiesdocumented as of [...] keratosis 03/17/2020 Overview: Bowenoid actinic keratosis (R nondenominational), Efudex (face 10/29) Hx of nonmelanoma skin cancer 03/17/2020 Overview: Atypical sebaceous neoplasm (L inferior nondenominational 03/2020) Sun-damaged skin 05/11/2017 S/P aortic valve [...] Passive Smoke Exposure: Past Smokeless Tobacco: Never Alcohol Use Standard Drinks/Week [...] on file documented as of this encounter Progress Notes * Roxane Vasques CHRA - 02/21/2024 2:00 PM EDT MyCode Nonconsent Documentation Ray Clarke was approached in the clinic regarding participation in the MyCode Project and did not consent. documented in this encounter Plan of Treatment Upcoming Encounters Date Type Department Care Team (Late st Contact Info) Description 03/09/2024 8:30 AM EDT Cardiac Studies Cardiac Studies, [facility] [address] [place] [address] 04/10/2024 9:00 AM EDT Home Visit Care at Home [address] [place] [address] Kelsea Lopez PA-C [address] [place] [address] 08/13/2024 10:30 AM EST Office Visit Cardiology, [facility] [address] [place] [address] Iván Vance MD [address] [place] [address] 09/13/2024 9:20 AM EST Office Visit Dermatology, [address] [address] Lorri Chatman PA-C [address] [place] [address] [place] [address] 11/23/2024 12:00 PM EDT Office Visit [facility] [address] [place] [facility] [place] [address] Antoni Fam MD [address] [place] [address] Scheduled Procedures Name Priority Associated Diagnoses Date/Ti [...] this encounter Medical Devices Implanted Type Area Plant Guard Device Identifier Shelf Expiration Date Model / Serial / Lot Screw 7x50 Poly Si [id number] - [id number] Implanted:Qty : 2 on 04/27/2010 [place] [facility] [place]/A: Spine Lumbar JNJ : [employer] [id number] / / Screw Set Sng Inner [id number] - [id number] Implanted:Qty : 4 on 04/27/2010 at [place] [facility] [place]/A: Spine Lumbar JNJ : [employer] [id number] / / Screw 7x45 Poly Si [id number] - [id number] Implanted:Qty : 2 on 04/27/2010 at [place] [facility] [place]/A: Spine Lumbar JNJ : [employer] [id number] / / Pepe 5.5x55 Ti Prbnt [id number] - [id number] Implanted:Qty : 2 on 04/27/2010 at [place] [facility] [place]/A: Spine Lumbar JNJ : [employer] [id number] / / Duragen Plus 1x3 Dp 1013 Min5 - [id number] Implanted:Qty : 1 on 04/27/2010 at [place] [facility] [place] N/A: Spine Lumbar [employer] 10/06/2012 DP-[id number] / / [id number] documented as of this encounter Advance Directives * Full Code [...] and were consensually agreed upon. Care Teams Lean Specialist Relationship Specialty Start Date End Date Antoni Fam MD [address] [place] [address] PCP - General Family Medicine 03/29/22 documented as of this encounter
[2024-02-22 07:54] LABS: Hematocrit (blood only) 34.7 % (42.0-52.0); Hemoglobin 11.7 g/dl (14.0-18.0); Mean Corpuscular Hemoglobin 30.5 pg (25.0-34.0); Mean Corpuscular Hgb Conc 33.7 g/dL (32.0-36.0); Mean Corpuscular Volume 90.4 fL (80.0-100.0); Mean Platelet Volume 10.9 fL (9.4-12.4); Platelet Count 239 K/uL (130-400); RDW Coefficient of Variation 13.7 % (11.5-14.5); RDW Standard Deviation 45.4 fL (36.4-46.3); Red Blood Count 3.84 M/uL (4.70-6.10); White Blood Count 14.78 K/ul (4.8-10.8)
[2024-02-22 08:25] LABS: BUN Creatinine Ratio 19.8 (10-20); Calcium 8.7 mg/dl (8.6-10.3); Creatinine Clr Calc Pharmacy 57.8 ml/min; Est GFR (African American) 75.9 ml/min; Est GFR (Non-African American) 65.5 ml/min; Magnesium 1.6 mg/dl (1.7-2.4); Phosphorus 2.9 mg/dl (2.5-4.9); Potassium 4.1 mmol/L (3.5-5.1)
[2024-02-22] MEDS: ASPIRIN 81 MG ECTAB PO SCH (09:12)
[2024-02-22] MEDS: amLODIPine BESYLATE 5 MG TAB PO SCH (09:12)
[2024-02-22] MEDS: ATORVASTATIN 10 MG TAB PO SCH (09:13)
[2024-02-22] MEDS: VANCOMYCIN HCL 1,000 MG in SODIUM CHLORIDE 0.9% 250 ML IV SCH (09:15)
--- NOTE | 2024-02-22 09:17 | Pharmacy Report ---
Pharmacy PK ABX Note - Date of Service February 22, 2024 - Assessment and Plan Assessment 73 year old M receiving VANCOMYCIN for treatment of cellulitis/bursitis. Pertinent microbiologic data includes: blood cultures pending Day # 1 of antimicrobial therapy. Plan Vancomycin * Loading dose: 1500 mg IV x 1 * Maintenance dose: 1000 mg IV every 18 hours * Regimen is predicted to achieve target AUC/ABA of 400-600 mg/L.hr * Random level ordered for: 02/24/24 @0900 Pharmacy will continue to follow and will adjust dose/frequency as necessary. Thank you. Pharmacy has transitioned to AUC monitoring for vancomycin. AUC/ABA is the preferred PK/PD target and is associated with decreased risk of nephrotoxicity compared to traditional trough targets.
--- NOTE | 2024-02-22 14:18 | Orthopedic Consultation ---
Date of Service February 22, 2024 Assessment & Plan (1) Cellulitis: (2) Bursitis of left elbow: He was seen and examined by Dr. Guevara today as well. He agreed to us aspirating his elbow. We did get about 5ml of purulent fluid out. Dressing applied with gauze, kerlex and lauren wrap. We will send the fluid off for crystal analysis, cell count, and gram stain/cultures. Continue IV antibiotics as ordered by the hospitalist service. Further recommendations pending lab results. History of Present Illness Reason for Consultation: . Requesting Physician: . Attending Physician: Rubina Corona MD .Ray is a 73 year old patient admitted yesterday with swelling, redness, and pain of his left elbow/arm. He says that he just woke up 4 days ago with symptoms. No injury or cuts to his arm that he recalls. He saw his pcp 2 days ago and was started on keflex and bactrim. His symptoms continued to worsen and he was admitted to [facility]. Vancomycin was started. Allergies Allergy/AdvReac Type Severity Reaction Status Date / Time No Known Allergies Allergy Unknown Verified 02/21/24 16:25 Home Medications Medication Instructions Recorded Confirmed Type atorvastatin 10 mg tablet 10 mg PO QAM 09/21/19 02/21/24 History levothyroxine 75 mcg tablet 75 mcg PO QAM 09/21/19 02/21/24 History losartan 25 mg tablet 25 mg PO QPM 09/21/19 02/21/24 History omega-3 fatty acids-fish oil 360 1 cap PO QAM 09/21/19 02/21/24 History mg-1,200 mg capsule (Fish Oil) amlodipine 2.5 mg tablet 2.5 mg PO QAM 02/21/24 02/21/24 History aspirin 81 mg tablet,delayed 81 mg PO QAM 02/21/24 02/21/24 History release cephalexin 500 mg capsule 500 mg PO TID 02/21/24 02/21/24 History sulfamethoxazole 800 1 tab PO BID 02/21/24 02/21/24 History mg-trimethoprim 160 mg tablet Past Med/Surg History Problem List Cellulitis (Acute) Bursitis of left elbow Right knee DJD Left knee DJD Medical History Achilles tendon tear Surgical History No pertinent past surgical history Family History Other No pertinent family history Social History Smoking Status: Never smoker Hx Alcohol Use: No Hx Substance Use: No Preferred Language: Mexican Communication Ability: Effective Anthropology Department Chair Required: No Beliefs That Will Affect Care: None Current Living Situation: Alone Other Information That Helps Us Care for You: No Feels Safe at Home: Yes Safety Concerns: Feels Safe At This Time Assistive Devices: None Review of Systems All systems reviewed & are unremarkable except as noted in HPI & below. Physical Exam alert and oriented. NAD Left arm: obvious swelling and erythema around the olecranon bursa and extending into the forearm, hand, and upper arm. He has fairly good elbow range of motion without pain. He can flex and extend his wrist and fingers appropriately. NVI. Skin intact. Results & Data Results & Data Laboratory Results . Diagnostic Findings . xrays of the elbow shows no fracture. There is some soft tissue swelling posteriorly and a small calcification posterior to the olecranon. PG Care Time/CCT Total # of Minutes Spent Total Time Spent with Patient: Total time spent is greater than 50% in coordination of care (as documented) at patient's floor/unit and/or counseling patient: Coding Level of Care Code 62213 IN/OBS CONSULT LVL 3,45M (25 - SIGNIFICANT, SEPARATELY IDENTIFIABLE ) Diagnoses Cellulitis L03.90 Laterality: left Site of cellulitis of extremity: upper extremity Bursitis of left elbow M70.32 (1) Cellulitis Laterality: left Site of cellulitis of extremity: upper extremity
[2024-02-22 15:46] LABS: Appearance Synovial Fluid Turbid; Color Synovial Fluid Other; Mononuclear WBC Synovial 15.7 %; Polynuclear WBC Synovial 84.3 %; RBC Synovial Fluid Auto 100000 /uL; WBC Synovial Fluid Auto 378600 /ul (0-200)
[2024-02-22] MEDS ORDERED: MELATONIN 3 MG TAB PO PRN (17:00)
--- NOTE | 2024-02-22 17:07 | Hospitalist Progress Note ---
Date of Service February 22, 2024 Assessment & Plan (1) Bursitis of left elbow: Plan Mr. Clarke is a 73 year old gentleman with history of HLD, HTN, hypothyroidism, aortic stenosis s/p aortic valve replacement, CKDIII who is admitted for evaluation and management of olecranon bursitis s/p failed Po antibiotics. Patient denies any acute concerns. Ortho consulted and evaluated patient, now s/p aspiration of fluid 02/21. #Left elbow cellulitis #Left elbow bursitis Failure of outpatient antibiotic therapy with Keflex and Bactrim. No sepsis poa. lactate and procal nl. remians afebrile. continue Vancomycin for gram + coverage follow fluid cultures from ortho aspirate . Other chronic medical conditions: HLD, HTNcontinue with/resume home meds as and when able. Heparin subcu for DVT prophylaxis Full code Admission and Anticipated Discharge Date Admission Date: February 21, 2024 Subjective Reports feeling some improvement in swelling of his left arm, denies pain, but notes "pressure" denies fevers chills or other acute concerns Physical Exam Constitutional: WD/WN, vitals as above Respiratory: normal respiratory effort, lungs clear to auscultation Cardiovascular: RRR, no murmur, no edema Skin: left elbow with notable inflammation "golf ball size" on olecranon process, erythema diffuse from elbow extending distally to forearm and proximal up to mid arm no palpable pain, no limitation in ROM Results & Data Results & Data Vital Signs (Past 12 Hours) Vital Signs Temp Pulse Resp BP Pulse Ox O2 Del Method 02/22/24 14:31 37.0 C 93 H 16 138/76 94 Room Air 02/22/24 07:37 36.9 C 83 16 124/70 94 Room Air Laboratory Results Short CBC 02/22/24 Range/Units 07:33 WBC 14.78 H (4.8-10.8) K/ul Hgb 11.7 L (14.0-18.0) g/dl Hct 34.7 L (42.0-52.0) % Plt Count 239 (130-400) K/uL [facility] 02/22/24 07:33 Sodium 135 L Potassium 4.1 Chloride 103 Carbon Dioxide 26 BUN 22 Creatinine 1.11 Glucose 106 H Calcium 8.7 Medications Administered Home Medications Medication Instructions Recorded Confirmed Last Taken atorvastatin 10 mg tablet 10 mg PO QAM 09/21/19 02/21/24 02/21/24 levothyroxine 75 mcg tablet 75 mcg PO QAM 09/21/19 02/21/24 02/21/24 losartan 25 mg tablet 25 mg PO QPM 09/21/19 02/21/24 02/20/24 omega-3 fatty acids-fish oil 360 1 cap PO QAM 09/21/19 02/21/24 02/21/24 mg-1,200 mg capsule (Fish Oil) amlodipine 2.5 mg tablet 2.5 mg PO QAM 02/21/24 02/21/24 02/21/24 aspirin 81 mg tablet,delayed 81 mg PO QAM 02/21/24 02/21/24 02/21/24 release cephalexin 500 mg capsule 500 mg PO TID 02/21/24 02/21/24 02/21/24 sulfamethoxazole 800 1 tab PO BID 02/21/24 02/21/24 02/21/24 mg-trimethoprim 160 mg tablet Active Medications Generic Name Dose Route Start Last Admin Trade Name Kingstonq PRN Reason Stop Dose Admin Acetaminophen 650 mg 02/21/24 17:02 02/22/24 16:26 Acetaminophen 325 Mg Tab PO 03/22/24 17:01 650 mg Q4H PRN Administration Pain or Fever Amlodipine Besylate 2.5 mg 02/22/24 09:00 02/22/24 09:12 Amlodipine Besylate 5 Mg Tab PO 03/23/24 08:59 2.5 mg QAM ALIYA Administration Aspirin 81 mg 02/22/24 09:00 02/22/24 09:12 Aspirin 81 Mg Ectab PO 03/23/24 08:59 81 mg QAM ALIYA Administration Atorvastatin Calcium 10 mg 02/22/24 09:00 02/22/24 09:13 Atorvastatin 10 Mg Tab PO 03/23/24 08:59 10 mg QAM ALIYA Administration Heparin Sodium (Porcine) 5,000 units 02/21/24 21:00 02/22/24 09:12 Heparin Sod 5,000 Unit/0.5 Ml Vial SQ 03/22/24 20:59 5,000 units Q12 ALIYA Administration Vancomycin HCl 1,000 mg/ 270 mls @ 200 mls/hr 02/22/24 09:00 02/22/24 11:15 Sodium Chloride IV 02/29/24 08:59 Infused Q18H ALIYA Infusion Levothyroxine Sodium 75 mcg 02/22/24 06:30 02/22/24 05:49 Levothyroxine Sodium 75 Mcg Tablet PO 03/23/24 06:29 75 mcg DAILYBB ALIYA Administration Losartan Potassium 25 mg 02/21/24 21:00 02/21/24 21:16 Losartan Potassium 25 Mg Tab PO 03/22/24 20:59 25 mg QPM ALIYA Administration
[2024-02-22] MEDS: ONDANSETRON INJ 2 MG/ML 2 ML VIAL IV PRN (17:24)
[2024-02-22 21:58] LABS: C Reactive Protein 10.03 mg/dl (0-0.5)
[2024-02-23] MEDS: POLYETHYLENE (MIRALAX) 17 GM PACK PO PRN (05:36)
--- NOTE | 2024-02-23 07:42 | Orthopedic Progress Note ---
Date of Service February 23, 2024 Assessment & Plan (1) Infection of left olecranon bursa: -Patient evaluated by myself and Dr. Guevara today. - His symptoms seem to be persistent despite IV antibiotics as well as aspiration. We will plan for a left olecranon bursa incision and drainage for today. Surgeon will be Dr. Arceo. -Patient to remain n.p.o. from this morning on due to surgical procedure later today. States that he has not had anything to eat since last night. Has not had anything to drink either. -Any questions or concerns, please reach out to orthopedics. Subjective Chan is a 73-year-old male who is being seen today as a progress check for his infected left elbow olecranon bursitis. The patient was seen by myself and Dr. Guevara. The patient was having increased erythema and swelling of the left elbow over the past few days. He was placed on Keflex and Bactrim by his PCP, however the erythema and swelling did spread, therefore he reported to the emergency department on 02/21/2024. He was seen yesterday by Dr. Guevara and Santi Dow where his left elbow was aspirated. Purulent fluid was aspirated and sent for analysis. On lab work, he does have an elevated white count, ESR and CRP. Patient does not feel febrile today. He does have an elevated white count as well on fluid analysis. Gram stain does show few gram-positive cocci, however culture is not yet back. Crystals still pending. Review of Systems All systems reviewed & are unremarkable except as noted in HPI & below. Physical Exam General: Alert and oriented. In no acute distress. Left arm: Does continue to have visualized swelling and erythema around the olecranon bursa. Does have good range of motion, however does not seem to be able to reach full extension. He feels that the pain is less today, however the fluid has returned from the aspiration. Erythema still persistent. He has painless range of motion of the left elbow. Sensation intact. Distal pulses palpated. Results & Data Results & Data Laboratory Results Laboratory Results - last 24 hr 02/22/24 02/22/24 07:33 Unknown WBC 14.78 H RBC 3.84 L Hgb 11.7 L Hct 34.7 L MCV 90.4 MCH 30.5 MCHC 33.7 RDW Std Deviation 45.4 RDW Coeff of Ez 13.7 Plt Count 239 MPV 10.9 ESR 30 H Sodium 135 L Potassium 4.1 Chloride 103 Carbon Dioxide 26 Anion Gap 6 BUN 22 Creatinine 1.11 Est Cr Clr Drug Dosing 57.8 Est GFR ( Amer) 75.9 Est GFR (Non-Af Amer) 65.5 BUN/Creatinine Ratio 19.8 Glucose 106 H Calcium 8.7 Phosphorus 2.9 Magnesium 1.6 L C-Reactive Protein 10.03 H Fluid Comment Synovial Source Left Elbow Synovial Color Other Synovial Appearance Turbid Synovial WBC (Auto) 603493 H Synovial RBC (Auto) 351370 Synovial Polynuclear % 84.3 Synovial Mononuclear % 15.7 Synovial Crystals Pending Diagnostic Findings . PG Care Time/CCT Total # of Minutes Spent Total Time Spent with Patient: Total time spent is greater than 50% in coordination of care (as documented) at patient's floor/unit and/or counseling patient: Coding Level of Care Code 01932 SUB INP/OBS CARE 09/29MIN Diagnoses Infection of left olecranon bursa M71.122
[2024-02-23 08:17] LABS: Hematocrit (blood only) 37.5 % (42.0-52.0); Hemoglobin 12.4 g/dl (14.0-18.0); Mean Corpuscular Hemoglobin 30.2 pg (25.0-34.0); Mean Corpuscular Hgb Conc 33.1 g/dL (32.0-36.0); Mean Corpuscular Volume 91.2 fL (80.0-100.0); Mean Platelet Volume 10.6 fL (9.4-12.4); Platelet Count 271 K/uL (130-400); RDW Coefficient of Variation 13.7 % (11.5-14.5); RDW Standard Deviation 45.8 fL (36.4-46.3); Red Blood Count 4.11 M/uL (4.70-6.10); White Blood Count 13.45 K/ul (4.8-10.8)
[2024-02-23 08:25] LABS: BUN Creatinine Ratio 17.7 (10-20); Calcium 9.1 mg/dl (8.6-10.3); Creatinine Clr Calc Pharmacy 56.8 ml/min; Est GFR (African American) 74.3 ml/min; Est GFR (Non-African American) 64.1 ml/min; Magnesium 1.8 mg/dl (1.7-2.4); Phosphorus 3.1 mg/dl (2.5-4.9)
[2024-02-23] MEDS: MAGNESIUM SULFATE / D5W 1 GM/100 ML BAG IV SCH (08:48)
--- NOTE | 2024-02-23 09:31 | Anesthesiology Consultation ---
Date of Service February 23, 2024 Assessment & Plan (1) Encounter for pre-operative examination: Chart Review Chart Review: Acceptable Risk for Surgery and Patient NOT seen in Pre Admission Testing will order preop ecg if one not completed Consults Requested none History Surgery Operation Date: 02/23/24 07:00 Proposed Procedures p Left Incision and Drainage Olecranon Bursitis Septic - José Miguel Arceo, Height/Weight Height: 5 ft 6 in Weight: 76.657 kg Allergies Allergy/AdvReac Type Severity Reaction Status Date / Time No Known Allergies Allergy Unknown Verified 02/21/24 16:25 Medications Home Medications Medication Instructions Recorded Confirmed Last Taken atorvastatin 10 mg tablet 10 mg PO QAM 09/21/19 02/21/24 02/21/24 levothyroxine 75 mcg tablet 75 mcg PO QAM 09/21/19 02/21/24 02/21/24 losartan 25 mg tablet 25 mg PO QPM 09/21/19 02/21/24 02/20/24 omega-3 fatty acids-fish oil 360 1 cap PO QAM 09/21/19 02/21/24 02/21/24 mg-1,200 mg capsule (Fish Oil) amlodipine 2.5 mg tablet 2.5 mg PO QAM 02/21/24 02/21/24 02/21/24 aspirin 81 mg tablet,delayed 81 mg PO QAM 02/21/24 02/21/24 02/21/24 release cephalexin 500 mg capsule 500 mg PO TID 02/21/24 02/21/24 02/21/24 sulfamethoxazole 800 1 tab PO BID 02/21/24 02/21/24 02/21/24 mg-trimethoprim 160 mg tablet Active Medications Generic Name Dose Route Start Last Admin Trade Name Freq PRN Reason Stop Dose Admin Acetaminophen 650 mg 02/21/24 17:02 02/22/24 16:26 Acetaminophen 325 Mg Tab PO 03/22/24 17:01 650 mg Q4H PRN Administration Pain or Fever Amlodipine Besylate 2.5 mg 02/22/24 09:00 02/23/24 08:44 Amlodipine Besylate 5 Mg Tab PO 03/23/24 08:59 2.5 mg QAM ALIYA Administration Aspirin 81 mg 02/22/24 09:00 02/23/24 08:44 Aspirin 81 Mg Ectab PO 03/23/24 08:59 81 mg QAM ALIYA Administration Atorvastatin Calcium 10 mg 02/22/24 09:00 02/23/24 08:45 Atorvastatin 10 Mg Tab PO 03/23/24 08:59 10 mg QAM ALIYA Administration Heparin Sodium (Porcine) 5,000 units 02/21/24 21:00 02/22/24 19:58 Heparin Sod 5,000 Unit/0.5 Ml Vial SQ 03/22/24 20:59 5,000 units Q12 ALIYA Administration Vancomycin HCl 1,000 mg/ 270 mls @ 200 mls/hr 02/22/24 09:00 02/23/24 04:52 Sodium Chloride IV 02/29/24 08:59 Infused Q18H ALIYA Infusion Magnesium Sulfate/Dextrose 1 gm in 100 mls @ 50 mls/hr 02/23/24 07:15 02/23/24 08:48 Magnesium Sulfate / D5w IV 02/23/24 11:14 50 mls/hr Q2H ALIYA Administration Levothyroxine Sodium 75 mcg 02/22/24 06:30 02/23/24 05:36 Levothyroxine Sodium 75 Mcg Tablet PO 03/23/24 06:29 75 mcg DAILYBB ALIYA Administration Losartan Potassium 25 mg 02/21/24 21:00 02/22/24 19:58 Losartan Potassium 25 Mg Tab PO 03/22/24 20:59 25 mg QPM ALIYA Administration Ondansetron HCl 4 mg 02/22/24 17:00 02/22/24 17:24 Ondansetron Inj 2 Mg/Ml 2 Ml Vial IV 03/23/24 16:59 4 mg Q6H PRN Administration Nausea And Vomiting Polyethylene Glycol 17 gm 02/21/24 17:02 02/23/24 05:36 Polyethylene (Miralax) 17 Gm Pack PO 03/22/24 17:01 17 gm DAILY PRN Administration Constipation Past Medical History Medical History (Updated 02/23/24 @ 09:31 by Darrick Cuenca MD) Encounter for pre-operative examination Hypothyroidism Hyperlipidemia Hypertension Achilles tendon tear Past Family History Family History Other No pertinent family history Past Surgical History Surgical History No pertinent past surgical history Social History Smoking Status: Never smoker Hx Alcohol Use: No Hx Substance Use: No Physical Exam Vital Signs Last Vital Signs Temp 36.9 C 02/23/24 07:30 Pulse 85 02/23/24 07:30 Resp 18 02/23/24 07:30 BP 128/73 02/23/24 07:30 Pulse Ox 95 02/23/24 07:30 O2 Del Method Room Air 02/23/24 07:30 Testing Laboratory Results 02/23/24 07:47 02/23/24 07:47 02/22/24 Unknown Gram Stain - Final Elbow,Left Aerobic and Anaerobic Culture - Preliminary Staphylococcus species 02/21/24 16:14 Aerobic Blood Culture - Preliminary Blood No growth in Aerobic bottle after 24 hours. Anaerobic Blood Culture - Final 02/21/24 14:05 Aerobic Blood Culture - Preliminary Blood No growth in Aerobic bottle after 24 hours. Anaerobic Blood Culture - Preliminary No growth in Anaerobic bottle after 24 hours.
[2024-02-23] MEDS: LACTATED RINGER'S 1,000 ML IV SCH (10:06)
[2024-02-23] MEDS ORDERED: fentaNYL citrate PF 100 MCG/2 ML VIAL ONE (12:21)
[2024-02-23] MEDS ORDERED: MIDAZOLAM HCL 1 MG/ML 2ML VIAL ONE (12:21)
[2024-02-23] MEDS ORDERED: PROPOFOL IV EMULSION 10 MG/ML 20 ML VIAL IV ONE ×2 (12:22→13:34)
[2024-02-23] MEDS ORDERED: DEXAMETHASONE SOD INJ 4 MG/ML VIAL ONE (12:22)
[2024-02-23] MEDS ORDERED: LIDOCAINE 2% 2 ML VIAL/AMP(20MG/ML) INFIL ONE (12:22)
[2024-02-23] MEDS ORDERED: ONDANSETRON INJ 2 MG/ML 2 ML VIAL ONE (12:22)
--- NOTE | 2024-02-23 12:25 | History & Physical Bridge Note ---
Date of Service February 23, 2024 History & Physical Bridge Note I have examined the patient, reviewed the History & Physical and in the interval since the performance of the History & Physical I have noted the following changes of clinical significance: no changes noted
[2024-02-23] MEDS ORDERED: SCOPOLAMINE 1 MG/72 HR TDSY PATCH TD ONE (13:15)
[2024-02-23] MEDS ORDERED: KETOROLAC 30 MG/ML VIAL ONE (13:37)
--- NOTE | 2024-02-23 13:53 | Electrocardiogram Report ---
Test Reason : Blood Pressure : / mmHG Vent. Rate : 077 BPM Atrial Rate : 077 BPM P-R Int : 170 ms QRS Dur : 090 ms QT Int : 384 ms P-R-T Axes : 059 074 078 degrees QTc Int : 434 ms Sinus rhythm with marked sinus arrhythmia ST elevation, consider early repolarization, pericarditis, or injury Abnormal ECG When compared with ECG of 23-SEP-1999 18:43, QRS duration has decreased ST elevation now present in Inferior leads QT has shortened Confirmed by Enrique Baez ([id number]) on 02/23/2024 1:53:21 PM Referred By: Antoni Fam Confirmed By:Enrique Baez
--- NOTE | 2024-02-23 13:55 | Hospitalist Progress Note ---
Date of Service February 23, 2024 Assessment & Plan (1) Bursitis of left elbow: Plan Mr. Clarke is a 73 year old gentleman with history of HLD, HTN, hypothyroidism, aortic stenosis s/p aortic valve replacement, CKDIII who is admitted for evaluation and management of olecranon bursitis s/p failed Po antibiotics. Patient denies any acute concerns. Ortho consulted and evaluated patient, now s/p aspiration of fluid 02/21. Pending I&D 02/22 #Left elbow cellulitis #Left elbow bursitis Failure of outpatient antibiotic therapy with Keflex and Bactrim. No sepsis poa. lactate and procal nl. remians afebrile. continue Vancomycin for gram + coverage follow fluid cultures from ortho aspirate pending I&D on 02/22, monitor postop cultures with staph species to date Other chronic medical conditions: HLD, HTNcontinue with/resume home meds as and when able. Heparin subcu for DVT prophylaxis Full code Admission and Anticipated Discharge Date Admission Date: February 21, 2024 Subjective Patient reports continued improvement in swelling, but still notable pressure on tip of elbow Plans for I&D this afternoon Physical Exam Constitutional: WD/WN, vitals as above Respiratory: normal respiratory effort, lungs clear to auscultation Cardiovascular: RRR, no murmur, no edema Skin: notable improvement in proximal swelling of upper arm still erythematous bulbous inflammation over olecranon process Results & Data Results & Data Vital Signs (Past 12 Hours) Vital Signs Temp Pulse Resp BP Pulse Ox O2 Del Method 02/23/24 12:19 36.7 C 72 18 121/74 96 Room Air 02/23/24 07:30 36.9 C 85 18 128/73 95 Room Air Laboratory Results Short CBC 02/23/24 Range/Units 07:47 WBC 13.45 H (4.8-10.8) K/ul Hgb 12.4 L (14.0-18.0) g/dl Hct 37.5 L (42.0-52.0) % Plt Count 271 (130-400) K/uL [facility] 02/23/24 07:47 Sodium 135 L Potassium 4.0 Chloride 103 Carbon Dioxide 26 BUN 20 Creatinine 1.13 Glucose 94 Calcium 9.1 Medications Administered Home Medications Medication Instructions Recorded Confirmed Last Taken atorvastatin 10 mg tablet 10 mg PO QAM 09/21/19 02/21/24 02/21/24 levothyroxine 75 mcg tablet 75 mcg PO QAM 09/21/19 02/21/24 02/21/24 losartan 25 mg tablet 25 mg PO QPM 09/21/19 02/21/24 02/20/24 omega-3 fatty acids-fish oil 360 1 cap PO QAM 09/21/19 02/21/24 02/21/24 mg-1,200 mg capsule (Fish Oil) amlodipine 2.5 mg tablet 2.5 mg PO QAM 02/21/24 02/21/24 02/21/24 aspirin 81 mg tablet,delayed 81 mg PO QAM 02/21/24 02/21/24 02/21/24 release cephalexin 500 mg capsule 500 mg PO TID 02/21/24 02/21/24 02/21/24 sulfamethoxazole 800 1 tab PO BID 02/21/24 02/21/24 02/21/24 mg-trimethoprim 160 mg tablet Active Medications Generic Name Dose Route Start Last Admin Trade Name Kingstonq PRN Reason Stop Dose Admin Acetaminophen 650 mg 02/21/24 17:02 02/22/24 16:26 Acetaminophen 325 Mg Tab PO 03/22/24 17:01 650 mg Q4H PRN Administration Pain or Fever Amlodipine Besylate 2.5 mg 02/22/24 09:00 02/23/24 08:44 Amlodipine Besylate 5 Mg Tab PO 03/23/24 08:59 2.5 mg QAM ALIYA Administration Aspirin 81 mg 02/22/24 09:00 02/23/24 08:44 Aspirin 81 Mg Ectab PO 03/23/24 08:59 81 mg QAM ALIYA Administration Atorvastatin Calcium 10 mg 02/22/24 09:00 02/23/24 08:45 Atorvastatin 10 Mg Tab PO 03/23/24 08:59 10 mg QAM ALIYA Administration Heparin Sodium (Porcine) 5,000 units 02/21/24 21:00 02/23/24 09:33 Heparin Sod 5,000 Unit/0.5 Ml Vial SQ 03/22/24 20:59 Not Given Q12 ALIYA Vancomycin HCl 1,000 mg/ 270 mls @ 200 mls/hr 02/22/24 09:00 02/23/24 04:52 Sodium Chloride IV 02/29/24 08:59 Infused Q18H ALIYA Infusion Lactated Ringer's 1,000 mls @ 80 mls/hr 02/23/24 10:00 02/23/24 10:06 Lr IV 03/24/24 09:59 80 mls/hr .[id number] ALIYA Administration Levothyroxine Sodium 75 mcg 02/22/24 06:30 02/23/24 05:36 Levothyroxine Sodium 75 Mcg Tablet PO 03/23/24 06:29 75 mcg DAILYBB ALIYA Administration Losartan Potassium 25 mg 02/21/24 21:00 02/22/24 19:58 Losartan Potassium 25 Mg Tab PO 03/22/24 20:59 25 mg QPM ALIYA Administration Ondansetron HCl 4 mg 02/22/24 17:00 02/22/24 17:24 Ondansetron Inj 2 Mg/Ml 2 Ml Vial IV 03/23/24 16:59 4 mg Q6H PRN Administration Nausea And Vomiting Polyethylene Glycol 17 gm 02/21/24 17:02 02/23/24 05:36 Polyethylene (Miralax) 17 Gm Pack PO 03/22/24 17:01 17 gm DAILY PRN Administration Constipation
--- NOTE | 2024-02-23 13:55 | Operative Report ---
PG Post Operative Report Pre & Post Diagnosis Operation Date: 02/23/24 07:00 Pre-Op Diagnosis: Left Elbow septic bursitis Post-Op Diagnosis: Left Elbow septic bursitis I identified the patient and participated in the time-out.: Yes Procedure Operation Date: 02/23/24 07:00 Actual Procedures p Incision and Drainage Left Olecranon Septic Bursitis(Left) - José Miguel Arceo DO Surgeon José Miguel Arceo DO [employer] Artist José Miguel Lyon PA-C Estimated Blood Loss 5 Findings Consistent with Post-Op Diagnosis Specimens Cultures Description of Procedure On February 23, 2024 Ray was brought down from hospital room to the preoperative holding area. The operative extremity identified and signed. He was taken back to the operating room and laid on table in supine position. He was put under general anesthesia. The left elbow was prepped and draped in sterile fashion. A timeout was done. The patient and the operative extremity was properly identified. A longitudinal incision was made directly over the olecranon bursa. Dissection was taken down through the fascia. There was a large amount of purulent discharge. Cultures were taken. Time was spent ensuring that I was able to get out all of the abscess that tracked up more proximally. The wound was then irrigated with sterile normal saline solution. A debridement was then done of any infectious appearing tissue. The elbow was once again debrided this time with 3 L of normal saline solution by pulse lavage. A [place] drain was placed. The skin was closed with #2-0 nylon suture. He was then placed in a soft dressing. He was then extubated and transferred to a hospital bed. He was taken to the postanesthesia care unit in stable condition. He tolerated the procedure well. José Miguel Lyon PA-C, was present for the entire procedure. He was critical for patient positioning, prepping, draping, retraction exposure, wound closure and application of sterile dressing. I attest to the content of the Intraoperative Record and any orders documented therein. Any exceptions are noted below.
[2024-02-23] MEDS: BUPIVACAINE/EPINEPHRINE 0.5% MPF 1:200,000 30 ML VIAL ONE (14:13)
--- NOTE | 2024-02-23 14:22 | Anesthesiology Progress Note ---
Date of Service February 23, 2024 Anesthesia Post Procedure Vital Signs Vital Signs: Temp Pulse Resp BP Pulse Ox O2 Del Method 02/23/24 12:19 36.7 C 72 18 121/74 96 Room Air 02/23/24 07:30 36.9 C 85 18 128/73 95 Room Air 02/22/24 19:52 36.8 C 82 16 111/68 96 Room Air 02/22/24 14:31 37.0 C 93 H 16 138/76 94 Room Air Pain Intensity Left Elbow: Pain Intensity: 2 Transfer of Care Handoff Completed per policy Notes Mental Status: alert / awake / arousable Patient Amnestic to Procedure: Yes Nausea / Vomiting: adequately controlled Pain: adequately controlled Airway Patency, RR, SpO2: stable & adequate BP & HR: stable & adequate Hydration State: stable & adequate Anesthetic Complications: no major complications apparent and Pt Satisfied with anesthetic care
[2024-02-23] MEDS ORDERED: ACETAMINOPHEN 500 MG TAB PO PRN (14:53)
[2024-02-23] MEDS ORDERED: oxyCODONE HCL IR 5 MG TAB (IMMEDIATE RELEASE) PO PRN (14:53)
[2024-02-23] MEDS: SODIUM CHLORIDE 0.9% 500 ML IV ONE (23:21)
[2024-02-24] MEDS: LACTATED RINGER'S 1,000 ML IV SCH (00:30)
[2024-02-24 09:27] LABS: Hematocrit (blood only) 33.6 % (42.0-52.0); Hemoglobin 11.1 g/dl (14.0-18.0); Mean Corpuscular Hemoglobin 30.3 pg (25.0-34.0); Mean Corpuscular Volume 91.8 fL (80.0-100.0); Mean Platelet Volume 10.4 fL (9.4-12.4); Platelet Count 292 K/uL (130-400); RDW Coefficient of Variation 13.5 % (11.5-14.5); RDW Standard Deviation 46.3 fL (36.4-46.3); Red Blood Count 3.66 M/uL (4.70-6.10); White Blood Count 14.63 K/ul (4.8-10.8)
[2024-02-24] MEDS: OMEGA-3 (PURIFIED FISH OIL) 1 GM CAP PO SCH (09:34)
[2024-02-24 09:47] LABS: BUN Creatinine Ratio 21.4 (10-20); Calcium 8.9 mg/dl (8.6-10.3); Creatinine Clr Calc Pharmacy 54.8 ml/min; Est GFR (African American) 71.3 ml/min; Est GFR (Non-African American) 61.5 ml/min; Phosphorus 3.6 mg/dl (2.5-4.9); Potassium 4.5 mmol/L (3.5-5.1)
--- NOTE | 2024-02-24 10:16 | Pharmacy Report ---
Pharmacy PK ABX Note - Date of Service February 24, 2024 - Assessment and Plan Assessment 02/23: Reviewed vancomycin level, predicting subtherapeutic AUC/ABA, will decrease vancomycin frequency. Elbow fluid culture growing MSSA, second culture from yesterday's I&D pending (staph sp.). Can likely de-escalate to Ancef if second culture still growing MSSA. 02/21: 73 year old M receiving VANCOMYCIN for treatment of cellulitis/bursitis. Pertinent microbiologic data includes: blood cultures pending Day # 1 of antimicrobial therapy. Plan Vancomycin * Loading dose: 1500 mg IV x 1 * Maintenance dose: 1000 mg IV every 18 hours * Decrease vancomycin frequency to vancomycin 1000mg Q12H * Regimen is predicted to achieve target AUC/ABA of 400-600 mg/L.hr * Random level ordered for: 02/25/24 with AM labs. Pharmacy will continue to follow and will adjust dose/frequency as necessary. Thank you. Pharmacy has transitioned to AUC monitoring for vancomycin. AUC/ABA is the preferred PK/PD target and is associated with decreased risk of nephrotoxicity compared to traditional trough targets.
[2024-02-24] MEDS: VANCOMYCIN HCL 1,000 MG in SODIUM CHLORIDE 0.9% 250 ML IV SCH (10:34)
--- NOTE | 2024-02-24 12:49 | Hospitalist Progress Note ---
Date of Service February 24, 2024 Assessment & Plan (1) Bursitis of left elbow: Plan Mr. Clarke is a 73 year old gentleman with history of HLD, HTN, hypothyroidism, aortic stenosis s/p aortic valve replacement, CKDIII who is admitted for evaluation and management of olecranon bursitis s/p failed Po antibiotics. Patient denies any acute concerns. Ortho consulted and evaluated patient, now s/p aspiration of fluid 02/21. s/p I&D 02/22 #Left elbow cellulitis #Left elbow bursitis Failure of outpatient antibiotic therapy with Keflex and Bactrim. No sepsis poa. lactate and procal nl. remains afebrile. discontinue Vancomycin Transition to Cefazolin for MSSA follow fluid cultures from ortho aspirate pending I&D on 02/22, monitor postop cultures with staph species to date, MSSA Other chronic medical conditions: HLD, HTNcontinue with/resume home meds as and when able. Heparin subcu for DVT prophylaxis Full code Admission and Anticipated Discharge Date Admission Date: February 21, 2024 Subjective Naeo reports feeling much improved s/p drainage Physical Exam Constitutional: WD/WN, vitals as above Respiratory: normal respiratory effort, lungs clear to auscultation Cardiovascular: RRR, no murmur, no edema Skin: left elbow dressing with purulent like drainage iso kendal drain, notable improvement in forearm swellling Results & Data Results & Data Vital Signs (Past 12 Hours) Vital Signs Temp Pulse Resp BP Pulse Ox O2 Del Method 02/24/24 07:53 36.4 C L 71 18 114/53 L 95 Room Air 02/24/24 04:55 36.6 C 62 16 109/65 96 Room Air Laboratory Results Short CBC 02/24/24 Range/Units 09:02 WBC 14.63 H (4.8-10.8) K/ul Hgb 11.1 L (14.0-18.0) g/dl Hct 33.6 L (42.0-52.0) % Plt Count 292 (130-400) K/uL [facility] 02/24/24 09:02 Sodium 137 Potassium 4.5 Chloride 103 Carbon Dioxide 30 BUN 25 H Creatinine 1.17 Glucose 171 H Calcium 8.9 Medications Administered Home Medications Medication Instructions Recorded Confirmed Last Taken atorvastatin 10 mg tablet 10 mg PO QAM 09/21/19 02/21/24 02/21/24 levothyroxine 75 mcg tablet 75 mcg PO QAM 09/21/19 02/21/24 02/21/24 losartan 25 mg tablet 25 mg PO QPM 09/21/19 02/21/24 02/20/24 omega-3 fatty acids-fish oil 360 1 cap PO QAM 09/21/19 02/21/24 02/21/24 mg-1,200 mg capsule (Fish Oil) amlodipine 2.5 mg tablet 2.5 mg PO QAM 02/21/24 02/21/24 02/21/24 aspirin 81 mg tablet,delayed 81 mg PO QAM 02/21/24 02/21/24 02/21/24 release cephalexin 500 mg capsule 500 mg PO TID 02/21/24 02/21/24 02/21/24 sulfamethoxazole 800 1 tab PO BID 02/21/24 02/21/24 02/21/24 mg-trimethoprim 160 mg tablet Active Medications Generic Name Dose Route Start Last Admin Trade Name Kingstonq PRN Reason Stop Dose Admin Acetaminophen 650 mg 02/21/24 17:02 02/22/24 16:26 Acetaminophen 325 Mg Tab PO 03/22/24 17:01 650 mg Q4H PRN Administration Pain or Fever Amlodipine Besylate 2.5 mg 02/22/24 09:00 02/24/24 09:33 Amlodipine Besylate 5 Mg Tab PO 03/23/24 08:59 Not Given QAM ALIYA Aspirin 81 mg 02/22/24 09:00 02/24/24 10:59 Aspirin 81 Mg Ectab PO 03/23/24 08:59 81 mg QAM ALIYA Administration Atorvastatin Calcium 10 mg 02/22/24 09:00 02/24/24 09:34 Atorvastatin 10 Mg Tab PO 03/23/24 08:59 10 mg QAM ALIYA Administration Fish Oil 1 gm 02/24/24 09:00 02/24/24 09:34 [place]-3 (Purified Fish Oil) 1 Gm Cap PO 03/25/24 08:59 1 gm QAM ALIYA Administration Heparin Sodium (Porcine) 5,000 units 02/21/24 21:00 02/24/24 09:34 Heparin Sod 5,000 Unit/0.5 Ml Vial SQ 03/22/24 20:59 5,000 units Q12 ALIYA Administration Lactated Ringer's 1,000 mls @ 100 mls/hr 02/24/24 00:00 02/24/24 00:30 Lr IV 03/25/24 00:00 100 mls/hr .Q10H ALIYA Administration Vancomycin HCl 1,000 mg/ 270 mls @ 200 mls/hr 02/24/24 11:00 02/24/24 12:05 Sodium Chloride IV 03/02/24 10:59 Infused Q12H ALIYA Infusion Levothyroxine Sodium 75 mcg 02/22/24 06:30 02/24/24 05:40 Levothyroxine Sodium 75 Mcg Tablet PO 03/23/24 06:29 75 mcg DAILYBB ALIYA Administration Losartan Potassium 25 mg 02/21/24 21:00 02/23/24 20:56 Losartan Potassium 25 Mg Tab PO 03/22/24 20:59 25 mg QPM ALIYA Administration Ondansetron HCl 4 mg 02/22/24 17:00 02/22/24 17:24 Ondansetron Inj 2 Mg/Ml 2 Ml Vial IV 03/23/24 16:59 4 mg Q6H PRN Administration Nausea And Vomiting Polyethylene Glycol 17 gm 02/21/24 17:02 02/23/24 05:36 Polyethylene (Miralax) 17 Gm Pack PO 03/22/24 17:01 17 gm DAILY PRN Administration Constipation
[2024-02-24] MEDS ORDERED: ceFAZolin 1000MG 1,000 MG/7.5 ML SYR IV SCH (14:15)
--- NOTE | 2024-02-24 15:13 | Orthopedic Progress Note ---
Date of Service February 24, 2024 Assessment & Plan (1) Infection of left olecranon bursa: Cultures grew out a pansensitive staph aureus. He is currently being treated on IV Ancef. He seems to be responding very well to the antibiotics. I will see him tomorrow morning and change his dressing and pull out the [place] drain. At that point I think he can be discharged home with its okay with the medical team. Will follow-up with orthopedics in 2 weeks for suture removal. Alana Bell was seen and examined at bedside this morning. Overall he is doing much better. His elbow feels much better than it did yesterday. He has been on IV antibiotics. He has no complaints.. Review of Systems All systems reviewed & are unremarkable except as noted in HPI & below. Physical Exam Physical examination of the left elbow, his forearm and his upper arm feels soft. There is no induration. He has good motion of his elbow without much pain. There is a dressing in place.. Results & Data Results & Data Laboratory Results . Diagnostic Findings . PG Care Time/CCT Total # of Minutes Spent Total Time Spent with Patient: Total time spent is greater than 50% in coordination of care (as documented) at patient's floor/unit and/or counseling patient: Coding Level of Care Code 42512 Post Operative Follow-Up Diagnoses Infection of left olecranon bursa M71.122
[2024-02-24] MEDS: ceFAZolin 2000MG 2,000 MG/15 ML SYR IV SCH (15:49)
[2024-02-25 07:02] LABS: Hematocrit (blood only) 34.8 % (42.0-52.0); Hemoglobin 11.4 g/dl (14.0-18.0); Mean Corpuscular Hemoglobin 30.4 pg (25.0-34.0); Mean Corpuscular Hgb Conc 32.8 g/dL (32.0-36.0); Mean Corpuscular Volume 92.8 fL (80.0-100.0); Mean Platelet Volume 10.5 fL (9.4-12.4); Platelet Count 318 K/uL (130-400); RDW Coefficient of Variation 13.7 % (11.5-14.5); RDW Standard Deviation 47.2 fL (36.4-46.3); Red Blood Count 3.75 M/uL (4.70-6.10); White Blood Count 9.77 K/ul (4.8-10.8)
[2024-02-25 07:08] LABS: BUN Creatinine Ratio 20.6 (10-20); Calcium 9.1 mg/dl (8.6-10.3); Creatinine Clr Calc Pharmacy 47.2 ml/min; Est GFR (African American) 59.4 ml/min; Est GFR (Non-African American) 51.3 ml/min; Potassium 4.4 mmol/L (3.5-5.1)
--- NOTE | 2024-02-25 08:20 | Discharge Summary ---
Discharge Summary Date of Service February 25, 2024 Principal Dx & Hospital Course #1 = Principal Diagnosis (1) Bursitis of left elbow: Plan Mr. Clarke is a 73 year old gentleman with history of HLD, HTN, hypothyroidism, aortic stenosis s/p aortic valve replacement, CKDIII who is admitted for evaluation and management of olecranon bursitis s/p failed Po antibiotics. Patient denies any acute concerns. Ortho consulted and evaluated patient, now s/p aspiration of fluid 02/21. s/p I&D 02/22 On day of discharge, kendal removed and dressing changed. Patient to follow up with ortho in 2 weeks for suture removal #Left elbow cellulitis #Left elbow bursitis Failure of outpatient antibiotic therapy with Keflex and Bactrim. No sepsis poa. lactate and procal nl. remains afebrile. discontinue Vancomycin Transition to Cefazolin for MSSA follow fluid cultures from ortho aspirate pending I&D on 02/22, monitor postop cultures with staph species to date, MSSA -Discharged with 9 more days of Keflex for total 10days abx s/p ID Other chronic medical conditions: HLD, HTNcontinue with/resume home meds as and when able. Notes For Next Care Provider Medication Changes From Visit keflex 500mg tid x 9 days Admission HPI Per Admitting Provider 73-year-old male with PMH of HLD, HTN presented to the ED for evaluation of expanding left elbow cellulitis. Patient was evaluated by his PCP yesterday for left elbow cellulitis and was put on antibiotic Keflex and Bactrim. Patient took both antibiotics about 1 days worth before presentation to the ED. Patient was directed to go to the hospital if elevated temperature or expanding erythema. Patient came into the ED for evaluation of cellulitis as the erythema is expanding than yesterday. Patient denies fever/sore throat/nausea/vomiting/chest pain/cough/palpitations/abdominal pain/acute changes in bowel or bladder or appetite habits. Patient denies any smoking/alcohol/recreational drug use. Full code as per my discussion with the patient. [Ena and Juan Jose are his POA] Medications were reviewed with the patient in detail. Plan of care were discussed with the patient and his children Ryan at bedside in detail. They voiced understanding and were agreeable to plan of care. Admission Exam Per Admitting Provider GENERAL: Alert and oriented x3. NAD, on RA. HEENT: No pallor, no icterus. Pupils equal, round and reactive to light. Oral mucosa moist. NECK: No JVD, no neck masses. HEART: S1 and S2 heard. Regular rate and rhythm. No murmur, no gallop. RESPIRATORY SYSTEM: Normal AP diameter. No accessory muscle use. No wheezing, no crackles. ABDOMEN: Soft, bowel sounds present, nontender, no distention. CENTRAL NERVOUS SYSTEM: No facial droop. Speech is clear. Obeys simple commands. Moves extremities. EXTREMITIES: No edema, no erythema seen. Left know bursitis/cellulitis noted, erythema/warmth extending from mid arm to about wrist. ROM ok, non painful. non tender on exam. Discharge Exam Constitutional WD/WN, vitals as above Respiratory normal respiratory effort, lungs clear to auscultation Cardiovascular RRR, no murmur, no edema Skin no swelling or erythema of lower arm, CINDY wrap over clean dressing in place Updated Medication List Medication Instructions Recorded Confirmed Type atorvastatin 10 mg tablet 10 mg PO QAM 09/21/19 02/21/24 History levothyroxine 75 mcg tablet 75 mcg PO QAM 09/21/19 02/21/24 History losartan 25 mg tablet 25 mg PO QPM 09/21/19 02/21/24 History omega-3 fatty acids-fish oil 360 1 cap PO QAM 09/21/19 02/21/24 History mg-1,200 mg capsule (Fish Oil) amlodipine 2.5 mg tablet 2.5 mg PO QAM 02/21/24 02/21/24 History aspirin 81 mg tablet,delayed 81 mg PO QAM 02/21/24 02/21/24 History release cephalexin 500 mg tablet 500 mg PO TID 9 days #27 tabs 02/25/24 Rx Hospital Stay Data Consultations 02/21/24 16:20 ED Decision to Admit Stat Procedures Performed Operation Date: 02/23/24 07:00 Actual Procedures p Incision and Drainage Left Olecranon Septic Bursitis(Left) - José Miguel Arceo DO Pending Results Patient Have Any Pending Studies at Discharge: No Discharge Instructions Given to Patient (Per Discharging Provider) You were noted to have infection in the protective sacs in your elbow (bursa), called bursitis. You underwent incision and drainage on 02/22. You will follow up with Orthopedics in 2 weeks for suture removal You will complete 9 more days of antibiotics Total Time Total Time Spent Total Time Spent (In Minutes): 45
--- NOTE | 2024-02-25 08:29 | Orthopedic Progress Note ---
Date of Service February 25, 2024 Assessment & Plan (1) Infection of left olecranon bursa: Overall is doing fairly well. I change her dressing and pulled the [place] drain. He can do daily dry dressing changes and I encouraged to continue drainage from the wound while he is on the antibiotics. He understands that. He is orthopedically stable for discharge when medically ready. He will follow- up with orthopedics in 2 weeks for suture removal. Have him call the office to set up an appointment for a time that works for him. Alana Bell was seen and examined at bedside this morning. Overall is doing fairly well. I changed the dressing. He is not having too much pain in the left elbow. He has no complaints.. Review of Systems All systems reviewed & are unremarkable except as noted in HPI & below. Physical Exam On physical examination left elbow, the dressing was changed and the [place] drain was pulled. There is still some purulent discharge but there is no abscess collection. His soft tissues are soft around the elbow. He has good range of motion with minimal pain.. Results & Data Results & Data Laboratory Results . Diagnostic Findings . PG Care Time/CCT Total # of Minutes Spent Total Time Spent with Patient: Total time spent is greater than 50% in coordination of care (as documented) at patient's floor/unit and/or counseling patient: Coding Level of Care Code 48942 Post Operative Follow-Up Diagnoses Infection of left olecranon bursa M71.122
== END 2024-02-25 11:17 | disposition home or self-care (01) | DRG 507 ==
LOC: ED 13:37 → SUATTDRO 17:02 → EDINP 17:02 → 3W 19:33